=== PATIENT | female | born 1950 | race Caucasian/White ===

== ENCOUNTER 2017-01-21 00:12 | Emergency (ER) | payer OTHER ==
[~2017-01-21] VITALS: Ht 160 cm; Wt 73.5 kg
[~2017-01-21 00:12] MED LIST: ATOR80TA75 PO; HYDR-3671 PO; LEVO100T87 PO; LISI20TA11 PO; LORA10TA3 PO; METF500T4 PO; METO100T PO; WARF5TAB72 PO
[2017-01-21 00:22] VITALS: Ht 160 cm; Wt 73.5 kg
--- NOTE | 2017-01-21 00:51 | ERD ---
ER Documentation Chief Complaint Date/Time DATE: 01/21/17 TIME: 00:50 Chief Complaint new medication x 2 days , allergic reaction today, swelling, itching [id number]% HPI 66-year-old female presented emergency room for allergic reaction. Patient stated that this started after she took isosorbide that this newly prescribed by her primary care physician 2 days ago. She complains of generalized rash/ hives to neck, chest, back, bilateral upper and lower extremities that has progressed in the past 2 days. Denies headache, loss of consciousness, dizziness, blurry vision, changes in vision, photophobia, facial pain, ear pain, throat pain, throat tightness, throat itchiness, feeling of throat closure, difficulty swallowing, neck pain, shoulder pain, chest pain, cough, hemoptysis, abdominal pain, back pain, loss of appetite, nausea, vomiting, hematochezia, diarrhea, constipation, urinary symptoms, , the possibility of being , bladder and bowel incontinences, extremity weakness, extremity tenderness, numbness or tingling sensation, difficulty walking, recent travel, recent exposure to illness, recent antibiotic use in the last 3 months, fever, chills. Allergy: No known drug allergies. PMH: Diabetes, depression, hypertension, atrial fibrillation, hyperlipidemia, thyroid problem. Family medical history: Denies. Medications: Lisinopril, metoprolol, omeprazole, hydralazine, Lipitor, metformin , Synthroid, isosorbide. Surgery: Denies. Primary Social History: Retired. Denies smoking, use of alcohol, use of illegal drugs. ROS All systems reviewed and are negative except as per history of present illness. Medications Home Meds Reported Medications Loratadine* (Loratadine*) 10 Mg Tablet, 10 MG PO DAILY, #30 TAB 07/14/16 Hydralazine Hcl* (Hydralazine Hcl*) 25 Mg Tab, 50 MG PO BID, #120 TAB 07/14/16 Atorvastatin* (Atorvastatin*) 80 Mg Tablet, 80 MG PO QHS, #30 TAB 07/14/16 Lisinopril* (Lisinopril*) 20 Mg Tablet, 40 MG PO DAILY, #30 TAB 07/14/16 Levothyroxine Sodium* (Levothyroxine Sodium*) 100 Mcg Tablet, 100 MCG PO AC BREAKFAST, TAB 02/13/15 Warfarin Sodium* (Coumadin*) 5 Mg Tablet, 5 MG PO DAILY, TAB TAKE MON,MOI,FR-7.5MG AND T,TH,SAT,JUAERS-5MG 02/13/15 Metformin* (Glucophage*) 500 Mg Tab, 500 MG PO WITH MEALS, TAB 02/13/15 Metoprolol (Lopressor) 100 Mg Tablet, 200 MG PO BID 12/04/13 Allergies Allergies: Coded Allergies: No Known Allergy (Unverified , 07/14/16) PMhx/Soc History of Surgery: Yes (GALLBLADDER) Anesthesia Reaction: No Hx Neurological Disorder: No Hx Respiratory Disorders: No Hx Cardiac Disorders: Yes (A FIB, HTN, HIGH CHOLESTEROL) Hx Psychiatric Problems: No Hx Miscellaneous Medical Probl: Yes (DM, CVA ) Hx Alcohol Use: No Hx Substance Use: No Hx Tobacco Use: No Physical Exam Vitals Vital Signs Date Time Temp Pulse Resp B/P Pulse Ox O2 Delivery O2 Flow Rate FiO2 01/21/17 00:22 98.6 80 18 153/75 100 Physical Exam CONSTITUTIONAL: Well-appearing; well-nourished. HEAD: Normocephalic; atraumatic. EYES: Conjunctiva clear, sclera non-icteric, EOM intact. PERRLA. Ears: Hearing intact. EACs clear, TMs non-bulging, non-inflamed, translucent & mobile, ossicles normal appearance, No obstructions, no erythema, no discharges Nose: No obstructions. No polyps. No external lesions. Mucosa non-inflamed. No external lesions, septum and turbinates normal. No rhinorrhea. No discharges. Frontal sinus is non-tender to palpation. Maxillary sinus is non-tender to palpation. MOUTH: Moist mucous membranes, no lesion, no obstructions, no vesicles, no thrush, patent airway Throat: Uvula in midline. Right tonsil is +1 with no erythema, no exudate. Left tonsil is +1 with no erythema, no exudate. Tolerating secretions well. Good gag reflex. Patent airway. Neck: Supple, without lesions, bruits, or adenopathy. No mass. Thyroid non- enlarged and non-tender to palpation. CHEST: Symmetrical chest. Respirations even and not labored. No retractions noted. CARDIOVASCULAR: Normal S1, S2. RRR. No murmurs, gallops. RESPIRATORY: Normal chest excursion with respiration; breath sounds clear and equal bilaterally; no wheezes, rhonchi, or rales. Breathing even and unlabored. Speaking in clear, full, and complete sentences w/ ease. ABDOMEN: Normal bowel sounds normal. Soft, round, non-distended, non-guarding, no tenderness, no rebound, no organomegaly, no masses, no pulsating abdominal mass. No hernia. No peritoneal signs. : No CVA tenderness. BACK: Symmetrical shoulder. Spine is midline without deformity, tenderness. No evidence of trauma or deformity. PELVIS: Stable pelvis. No evidence of trauma or deformity. MUSCULOSKELETAL: Normal gait and station. No misalignment, asymmetry, crepitation, defects, tenderness, masses, effusions, decreased range of motion, instability, atrophy or abnormal strength or tone in the head, neck, spine, ribs , pelvis or extremities. No calf tenderness. NEUROVASCULAR: Distal pulses are present. Pedal pulse are present, equal, and normal. Capillary refills are < 2 seconds. NEUROLOGIC: Alert and oriented x4. Speaks full and clear sentences. Cranial Nerves II-XII normal. Sensation to pain, touch, and proprioception normal. Grossly unremarkable. No neurologic deficits. Romberg test is negative. PSYCHOLOGICAL: The patients mood and manner are appropriate. No hallucinations , delusions. Not SI. Not HI. Has the capacity to decide for self SKIN: Normal for age and ethnicity; warm; dry; good turgor; no apparent lesions or exudates. Intact. Noted rash/hives to neck, back, chest, bilateral upper and lower extremities. Results 24 hrs Current Medications Medications (Trade) Dose Ordered Sig/Roberto Route PRN Reason Start Time Stop Time Status Last Admin Dose Admin Methylprednisolone Sodium Succinate (Solu-Medrol) 125 mg ONCE ONCE IM 01/21/17 01:00 01/21/17 01:01 DC 01/21/17 01:01 Diphenhydramine HCl (Benadryl) 50 mg ONCE ONCE PO 01/21/17 01:00 01/21/17 01:01 DC 01/21/17 01:01 Procedures/MDM Examination: Please see physical examination. Disease process, medical treatment was explained to the patient and family member. They verbalized understanding and agreed with the medical treatment, and follow-up care. Treatment: Solu-Medrol IM. Pepcid p.o. Benadryl p.o. Re-evaluation: Patient denies headache, blurry vision, dizziness, neck pain, shoulder pain, chest pain, back pain, throat pain, feeling of throat closure, throat tightness, throat itchiness, chest tightness, abdominal pain. No nausea and vomiting. No episode of emesis here to emergency department. Skin appearance is improved. Skin rashes/hives has decreased a lot. Respirations even and unlabored. Lung sounds are clear to auscultations. No retractions. No accessory muscle use of breathing. Consultation: None. Differential diagnosis: Anaphylaxis versus allergic reaction versus hives versus rash versus scabies Medical decision makin-year-old female presented emergency room for allergic reaction. Patient stated that this started after she took isosorbide that this newly prescribed by her primary care physician 2 days ago. She complains of generalized rash/hives to neck, chest, back, bilateral upper and lower extremities that has progressed in the past 2 days. Patient's complaint, patient's history about her complaint, my physical findings, my reevaluation are consistent with my final diagnosis of allergic reaction. Medications prescribed are the following: Prednisone. Patient was instructed to stop her isosorbide and have her primary care physician to change it to another medication. Patient and family member are made aware of the side effects and adverse reactions of the medications prescribed. Instructed on when to seek emergent and medical attention in case allergic/anaphylactic reactions or severe side effects and or adverse reactions to medications. Patient and family member verbalized understanding. Patient instructed Instructed to follow-up with his PCP in 24-48 hours. Daughter stated that she will bring her to her primary care physician in the next 24-48 hours. Instructed to Call 911 for chest pain, shortness of breath. Advised to come back here in ED as soon as possible for severity of symptoms which includes but not limited to: any new symptoms; shortness of breath/difficulty of breathing; cardiovascular changes; severe gastrointestinal symptoms; signs and symptoms of bleeding and or infection; signs of compartment syndrome/neurovascular changes; neurological changes/deficits. Patient and family member verbalized understanding. Upon discharge, patient is alert and oriented x 4, speaks full and clear sentences, denies pain, has no neurological deficits, has no neurovascular deficits, difficulty of breathing. Breathing even and unlabored. Lung sounds are clear to auscultation. Not in distress. Appears comfortable. Ambulatory with steady gait. Appears satisfied with care provided here in ED. Departure Diagnosis: Primary Impression: Allergic reaction Condition: Stable Additional Instructions: Patient instructed Instructed to follow-up with his PCP in 24-48 hours. Daughter stated that she will bring her to her primary care physician in the next 24-48 hours. Instructed to Call 911 for chest pain, shortness of breath. Advised to come back here in ED as soon as possible for severity of symptoms which includes but not limited to: any new symptoms; shortness of breath/difficulty of breathing; cardiovascular changes; severe gastrointestinal symptoms; signs and symptoms of bleeding and or infection; signs of compartment syndrome/neurovascular changes; neurological changes/deficits. Patient and family member verbalized understanding. FATUMA FERRER Jan 21, 2017 00:51
[2017-01-21] MEDS ORDERED: METHYLPREDNISOLONE 125 MG INJ IM ONE (01:00)
[2017-01-21] MEDS ORDERED: DIPHENHYDRAMINE 50 MG CAP PO ONE (01:00)
[2017-01-21] MEDS ORDERED: PRED20TA PO (01:45)
[2017-01-21] MEDS ORDERED: BEN25 PO (01:45)
== END 2017-01-21 02:18 | disposition home or self-care (01) ==
LOC: FTE 00:12
DX: L29.9 Pruritus, unspecified (principal); T46.3X5A Adverse effect of coronary vasodilators, initial encounter; E11.9 Type 2 diabetes mellitus without complications; I10 Essential (primary) hypertension; Z79.84 Long term (current) use of oral hypoglycemic drugs; Z79.01 Long term (current) use of anticoagulants
CPT/HCPCS: J2930; Z7610; 96372

== ENCOUNTER 2017-04-16 18:35 | Emergency (ER) | payer SELFPAY ==
[~2017-04-16] VITALS: Ht 165.1 cm; Wt 63.5 kg
[~2017-04-16 18:35] MED LIST changes: +BEN25 PO; +PRED20TA PO
[2017-04-16 18:47] VITALS: Ht 165.1 cm; Wt 63.5 kg
--- NOTE | 2017-04-16 19:20 | ERD ---
ER Documentation Chief Complaint Date/Time DATE: 04/16/17 TIME: 19:18 Chief Complaint HTN and dizzy since this am, pt has not taken HTN medication since 6am HPI 66-year-old woman here for elevated blood pressure and dizziness. She states she has been using her medications without improvement in blood pressure. She denies fevers or chills, no chest pain or shortness of breath, no vomiting or diarrhea. ROS All systems reviewed and are negative except as per history of present illness. Medications Home Meds Active Scripts Meclizine Hcl* (Antivert*) 12.5 Mg Tab, 25 MG PO TID Y for DIZZINESS, #15 TAB Prov:SARAH LIMA MD 04/16/17 Diphenhydramine Hcl* (Benadryl*) 25 Mg Cap, 25 MG PO Q6 Y for ITCHING/RASH, #30 TAB Prov:FATUMA FERRER 01/21/17 Prednisone* (Prednisone*) 20 Mg Tab, 40 MG PO DAILY for 3 Days, TAB Prov:FATUMA FERRER 01/21/17 Reported Medications Loratadine* (Loratadine*) 10 Mg Tablet, 10 MG PO DAILY, #30 TAB 07/14/16 Hydralazine Hcl* (Hydralazine Hcl*) 25 Mg Tab, 50 MG PO BID, #120 TAB 07/14/16 Atorvastatin* (Atorvastatin*) 80 Mg Tablet, 80 MG PO QHS, #30 TAB 07/14/16 Lisinopril* (Lisinopril*) 20 Mg Tablet, 40 MG PO DAILY, #30 TAB 07/14/16 Levothyroxine Sodium* (Levothyroxine Sodium*) 100 Mcg Tablet, 100 MCG PO AC BREAKFAST, TAB 02/13/15 Warfarin Sodium* (Coumadin*) 5 Mg Tablet, 5 MG PO DAILY, TAB TAKE MON,MOI,FR-7.5MG AND T,TH,SAT,JUARES-5MG 02/13/15 Metformin* (Glucophage*) 500 Mg Tab, 500 MG PO WITH MEALS, TAB 02/13/15 Metoprolol (Lopressor) 100 Mg Tablet, 200 MG PO BID 12/04/13 Allergies Allergies: Coded Allergies: No Known Allergy (Unverified , 07/14/16) PMhx/Soc Atrial fibrillation, psychosis, diabetes mellitus, hypothyroidism, hypertension , dyslipidemia, CVA History of Surgery: Yes (GALLBLADDER) Anesthesia Reaction: No Hx Neurological Disorder: No Hx Respiratory Disorders: No Hx Cardiac Disorders: Yes (A FIB, HTN, HIGH CHOLESTEROL) Hx Psychiatric Problems: No Hx Miscellaneous Medical Probl: Yes (DM, CVA ) Hx Alcohol Use: No Hx Substance Use: No Hx Tobacco Use: No FmHx Family History: No diabetes Physical Exam Vitals Vital Signs Date Time Temp Pulse Resp B/P Pulse Ox O2 Delivery O2 Flow Rate FiO2 04/16/17 21:32 98.2 77 18 129/62 99 Room Air 04/16/17 18:47 98.2 72 18 206/95 96 Physical Exam GENERAL: Well-developed, well-nourished, well-hydrated, in no apparent distress , looks nontoxic in appearance HEENT: Moist mucous membranes, pink conjunctiva, no cervical spine tenderness or step-off deformities, no goiter, no jaundice or icterus, extraocular movements intact without pain. No submandibular induration, and no pharyngeal erythema NEURO: Alert and oriented 3, cranial nerves II through XII intact bilaterally, pupils equal round reactive to light, no focal deficits or facial asymmetry, sensation intact distally Strength 5/5 in upper and lower extremities bilaterally CARDIAC: Regular rate and rhythm, no murmurs rubs or gallops LUNGS: Clear bilaterally no wheezing crackles or stridor ABDOMEN: Soft nontender, no guarding, no rigidity, no rebound, no psoas sign no obturator sign. Normoactive bowel sounds SKIN: Warm and dry to touch, no abrasions, contusions, or hematomas, no lacerations, no ecchymosis, no target lesions, and without ulcers EXTREMITIES: No clubbing cyanosis or edema, calves are bilaterally symmetrical, no Homans sign, no popliteal cord sign. Distal pulses equal and bilateral PSYCH: Normal affect without agitation or irritability Result Diagram: 04/16/17193904/16/171939 Results 24 hrs Laboratory Tests Test 04/16/17 19:40 04/16/17 20:25 White Blood Count 5.510^3/ul Red Blood Count 3.8010^6/ul Hemoglobin 10.5g/dl Hematocrit 33.0% Mean Corpuscular Volume 86.8fl Mean Corpuscular Hemoglobin 27.6pg Mean Corpuscular Hemoglobin Concent 31.8g/dl Red Cell Distribution Width 17.3% Platelet Count 76090^3/UL Mean Platelet Volume 11.3fl Neutrophils % 62.3% Lymphocytes % 23.0% Monocytes % 10.5% Eosinophils % 2.7% Basophils % 1.3% Nucleated Red Blood Cells % 0.0/100WBC Neutrophils # 3.410^3/ul Lymphocytes # 1.310^3/ul Monocytes # 0.610^3/ul Eosinophils # 0.210^3/ul Basophils # 0.110^3/ul Nucleated Red Blood Cells # 0.010^3/ul Sodium Level 136mmol/L Potassium Level 3.5mmol/L Chloride Level 97mmol/L Carbon Dioxide Level 26mmol/L Anion Gap 17 Blood Urea Nitrogen 10mg/dl Creatinine 0.62mg/dl Glucose Level 98mg/dl Calcium Level 9.5mg/dl Total Bilirubin 0.9mg/dl Direct Bilirubin 0.00mg/dl Indirect Bilirubin 0.9mg/dl Aspartate Amino Transf (AST/SGOT) 42IU/L Alanine Aminotransferase (ALT/SGPT) 41IU/L Alkaline Phosphatase 116IU/L Troponin I < 0.012ng/ml Total Protein 7.9g/dl Albumin 4.9g/dl Globulin 3.00g/dl Albumin/Globulin Ratio 1.63 Lipase 116U/L Urine Color STRAW Urine Clarity CLEAR Urine pH 7.0 Urine Specific [place] 1.003 Urine Ketones NEGATIVEmg/dL Urine Nitrite NEGATIVEmg/dL Urine Bilirubin NEGATIVEmg/dL Urine Urobilinogen NEGATIVEmg/dL Urine Leukocyte Esterase TRACELeu/ul Urine Microscopic RBC 0/HPF Urine Microscopic WBC 1/HPF Urine Bacteria FEW/HPF Urine Hemoglobin NEGATIVEmg/dL Urine Glucose NEGATIVEmg/dL Urine Total Protein NEGATIVEmg/dl Current Medications Medications (Trade) Dose Ordered Sig/Roberto Route PRN Reason Start Time Stop Time Status Last Admin Dose Admin Clonidine (Catapres) 0.1 mg ONCE ONCE PO 04/16/17 19:30 04/16/17 19:31 DC 04/16/17 19:48 Ondansetron HCl 4 mg 4 mg ONCE STAT IV 04/16/17 19:23 04/16/17 19:27 DC 04/16/17 19:48 Sodium Chloride (NS) 1,000 ml @ 1,000 mls/hr Q1H ONCE IV 04/16/17 20:00 04/16/17 20:59 DC 04/16/17 19:47 Procedures/MDM IV line was established patient was placed on monitoring manager rhythm strip revealed a narrow complex rhythm at about 60 bpm. Patient was afebrile. For hypertension I administered clonidine 0.1 mg p.o. and 1 L normal saline intravenously for dizziness. Patient also received Zofran 4 mg IV. EKG performed, read by me revealed an atrial fibrillation at 63 bpm, normal axis , narrow QRS complex, no concerning ST elevations or depressions noted. CBC and electrolytes were normal, liver function tests are normal, troponin was negative. Urine analysis was negative for infection. Differential diagnoses considered, included but not limited to acute coronary syndrome, pulmonary embolism, aortic dissection, abdominal aortic aneurysm, sepsis, stroke, meningitis, encephalitis, pneumonia, appendicitis, cholecystitis , bowel obstruction, pyelonephritis, nephrolithiasis, cystitis, as well as metabolic, hematologic, and electrolyte abnormalities. As well as abscess, cellulitis, fractures, and dislocations. Patient feels much better at this time, and vital signs are normal, symptoms have improved. I did give strict instructions to return to the ED if symptoms continue or worsen, patient will otherwise follow-up with primary care physician. Patient understood instructions and agreed to plan. Disclaimer: Inadvertent spelling and grammatical errors are likely due to EHR/ dictation software use and do not reflect on the overall quality of patient care. Also, please note that the electronic time recorded on this note does not necessarily reflect the actual time of the patient encounter. Departure Diagnosis: Primary Impression: Hypertension Hypertension type: essential hypertension Qualified Code: I10 - Essential hypertension Additional Impression: Dizziness Condition: Good SARAH LIMA MD Apr 16, 2017 19:20
[2017-04-16] MEDS ORDERED: ONDANSETRON 4 MG INJ IV STA (19:23)
[2017-04-16 19:50] LABS: ADD SCAN DIFF NO
[2017-04-16] MEDS ORDERED: SOD CHLORIDE 0.9% 1,000 ML IV ONE (20:00)
[2017-04-16 20:01] LABS: BASOPHIL # 0.1 10^3/ul (0.0-0.1); BASOPHILS % 1.3 % (0.0-2.0); EOSINOPHILS # 0.2 10^3/ul (0.0-0.5); EOSINOPHILS % 2.7 % (0.0-7.0); HEMOGLOBIN 10.5 g/dl (12.0-16.0); LYMPHOCYTES # 1.3 10^3/ul (0.8-2.9); MEAN CORPUSCULAR HEMOGLOBIN 27.6 pg (29.0-33.0); MEAN CORPUSCULAR HGB CONC 31.8 g/dl (32.0-37.0); MEAN CORPUSCULAR VOLUME 86.8 fl (82.0-101.0); MEAN PLATELET VOLUME 11.3 fl (7.4-10.4); MONOCYTE # 0.6 10^3/ul (0.3-0.9); MONOCYTES % 10.5 % (0.0-11.0); NEUTROPHIL # 3.4 10^3/ul (1.6-7.5); NEUTROPHILS % 62.3 % (39.0-77.0); PLATELET COUNT 204 10^3/UL (140-415); RED CELL DISTRIBUTION WIDTH 17.3 % (11.5-14.5); WHITE BLOOD COUNT 5.5 10^3/ul (4.8-10.8)
[2017-04-16 20:18] LABS: ALANINE AMINOTRANSFERASE 41 IU/L (13-69); ALBUMIN 4.9 g/dl (3.3-4.9); ALBUMIN/GLOBULIN RATIO 1.63; ALKALINE PHOSPHATASE 116 IU/L (42-121); ANION GAP 17 (8-16); ASPARTATE AMINO TRANSFERASE 42 IU/L (15-46); BILIRUBIN,INDIRECT 0.9 mg/dl (0-1.1); BILIRUBIN,TOTAL 0.9 mg/dl (0.2-1.3); BLOOD UREA NITROGEN 10 mg/dl (7-20); CALCIUM 9.5 mg/dl (8.4-10.2); CARBON DIOXIDE 26 mmol/L (21-31); CHLORIDE 97 mmol/L (97-110); CREATININE 0.62 mg/dl (0.44-1.00); GLUCOSE 98 mg/dl (70-220); POTASSIUM 3.5 mmol/L (3.5-5.1); SODIUM 136 mmol/L (135-144); TOTAL PROTEIN 7.9 g/dl (6.1-8.1)
[2017-04-16 20:31] LABS: TROPONIN-I < 0.012 ng/ml (0.00-0.12)
[2017-04-16 20:46] LABS: ADD UMIC YES; UR ASCORBIC ACID NEGATIVE (NEGATIVE); UR BACTERIA FEW /HPF (NONE SEEN); UR BILIRUBIN (Dip) NEGATIVE (NEGATIVE); UR BLOOD (Dip) NEGATIVE (NEGATIVE); UR CLARITY CLEAR (CLEAR); UR COLOR STRAW (YELLOW); UR GLUCOSE (Dip) NEGATIVE (NEGATIVE); UR KETONES (Dip) NEGATIVE (NEGATIVE); UR LEUKOCYTE ESTERASE (Dip) TRACE Leu/ul (NEGATIVE); UR NITRITE (Dip) NEGATIVE (NEGATIVE); UR RBC 0 /HPF (0-5); UR SPECIFIC GRAVITY (Dip) 1.003 (1.003-1.030); UR TOTAL PROTEIN (Dip) NEGATIVE (NEGATIVE); UR UROBILINOGEN (Dip) NEGATIVE (NEGATIVE)
--- NOTE | 2017-04-16 21:11 | RADRPT ---
PROCEDURE: XR Chest. CLINICAL INDICATION: Abdominal pain. TECHNIQUE: PA and Lateral views of the chest were obtained. COMPARISON: None. FINDINGS: Cardiomegaly and atherosclerotic calcifications in the thoracic aorta. The lungs are clear. No signs of pleural fluid or pneumothorax are seen. The osseous structures and soft tissues are unremarkable . IMPRESSION: No evidence for active cardiopulmonary disease. RPTAT: [facility] Physician Shannon Date Time Electronically viewed and signed by Physician Shannon on 04/16/2017 21:10 RS/
[2017-04-16] MEDS ORDERED: MECL12.574 PO (21:16)
[2017-04-16 21:32] VITALS: BP 129/62; PULSE 77; RESP 18; TEMP 98.2
== END 2017-04-16 21:33 | disposition home or self-care (01) ==
LOC: E/R 18:35
DX: I10 Essential (primary) hypertension (principal); R42 Dizziness and giddiness; E11.9 Type 2 diabetes mellitus without complications; E03.9 Hypothyroidism, unspecified; Z79.01 Long term (current) use of anticoagulants; Z79.84 Long term (current) use of oral hypoglycemic drugs
CPT/HCPCS: 36415; 71010; 80053; 81001; 83690; 84484; 85025; 93005; 96374; 99285; J2405; J7030

== ENCOUNTER 2017-04-29 | Inpatient (IN) | payer MEDICAID ==
[~2017-04-29] VITALS: Ht 167.6 cm; Wt 67.4 kg
[2017-04-29] VITALS (16 sets, daily range): BP systolic 155–200; BP diastolic 69–95; PULSE 59–90; RESP 17–18; Ht 167.6 cm; Wt 67.4 kg
[~2017-04-29] MED LIST changes: +MECL12.574 PO
[2017-04-29] MEDS ORDERED: ASPIRIN 325 MG TAB PO STA (01:12)
[2017-04-29] MEDS ORDERED: SOD CHLORIDE 0.9% 1,000 ML IV STA (01:12)
--- NOTE | 2017-04-29 01:29 | ERA ---
ER Documentation Chief Complaint Date/Time DATE: 04/29/17 TIME: 01:27 Chief Complaint c/o generalized weakness and dizziness since 0. HPI A 66-year-old female with past medical history of AFib, diabetes, hypertension , hypothyroidism, peripheral artery disease, multiple strokes and TIAs, and high cholesterol, she states that around 6 PM tonight the patient started having numbness to her left side of her face and left arm. The daughter asked the patient to smile and she was unable to do so. The patient denies any weakness slurred speech headache syncope dizziness chest pain palpitations. Patient has a history of atrial fibrillation and is on Coumadin. She states that her symptoms are much improved. Patient's a very poor historian and is very soft-spoken and cannot give much of a history. ROS All systems reviewed and are negative except as per history of present illness. Medications Home Meds Active Scripts Meclizine Hcl* (Antivert*) 12.5 Mg Tab, 25 MG PO TID Y for DIZZINESS, #15 TAB Prov:SARAH LIMA MD 04/16/17 Diphenhydramine Hcl* (Benadryl*) 25 Mg Cap, 25 MG PO Q6 Y for ITCHING/RASH, #30 TAB Prov:FATUMA FERRER 01/21/17 Prednisone* (Prednisone*) 20 Mg Tab, 40 MG PO DAILY for 3 Days, TAB Prov:FATUMA FERRER 01/21/17 Reported Medications Loratadine* (Loratadine*) 10 Mg Tablet, 10 MG PO DAILY, #30 TAB 07/14/16 Hydralazine Hcl* (Hydralazine Hcl*) 25 Mg Tab, 50 MG PO BID, #120 TAB 07/14/16 Atorvastatin* (Atorvastatin*) 80 Mg Tablet, 80 MG PO QHS, #30 TAB 07/14/16 Lisinopril* (Lisinopril*) 20 Mg Tablet, 40 MG PO DAILY, #30 TAB 07/14/16 Levothyroxine Sodium* (Levothyroxine Sodium*) 100 Mcg Tablet, 100 MCG PO AC BREAKFAST, TAB 02/13/15 Warfarin Sodium* (Coumadin*) 5 Mg Tablet, 5 MG PO DAILY, TAB TAKE MON,MOI,FR-7.5MG AND T,TH,SAT,JUARES-5MG 02/13/15 Metformin* (Glucophage*) 500 Mg Tab, 500 MG PO WITH MEALS, TAB 02/13/15 Metoprolol (Lopressor) 100 Mg Tablet, 200 MG PO BID 12/04/13 Allergies Allergies: Coded Allergies: No Known Allergy (Unverified , 07/14/16) PMhx/Soc History of Surgery: Yes (GALLBLADDER, APPY ) Anesthesia Reaction: No Hx Neurological Disorder: No Hx Respiratory Disorders: No Hx Cardiac Disorders: Yes (A FIB, HTN, HIGH CHOLESTEROL) Hx Psychiatric Problems: No Hx Miscellaneous Medical Probl: Yes (DM, CVA ) Hx Alcohol Use: No Hx Substance Use: No Hx Tobacco Use: No FmHx Family History: No coronary disease Physical Exam Vitals Vital Signs Date Time Temp Pulse Resp B/P Pulse Ox O2 Delivery O2 Flow Rate FiO2 04/29/17 01:55 62 16 183/105 100 Room Air 04/29/17 00:05 97.3 64 20 201/110 62 Physical Exam Const: [] Head: Atraumatic Eyes: Normal Conjunctiva ENT: Normal External Ears, Nose and Mouth. Neck: Full range of motion..~ No meningismus. Resp: Clear to auscultation bilaterally Cardio: Regular rate and rhythm, no murmurs Abd: Soft, non tender, non distended. Normal bowel sounds Skin: No petechiae or rashes Back: No midline or flank tenderness Ext: No cyanosis, or edema Neur: Awake and alert Psych: Normal Mood and Affect Result Diagram: 04/29/1711604/29/17116 Results 24 hrs Laboratory Tests Test 04/29/17 01:17 04/29/17 01:32 White Blood Count 5.210^3/ul Red Blood Count 3.8910^6/ul Hemoglobin 10.9g/dl Hematocrit 33.7% Mean Corpuscular Volume 86.6fl Mean Corpuscular Hemoglobin 28.0pg Mean Corpuscular Hemoglobin Concent 32.3g/dl Red Cell Distribution Width 16.8% Platelet Count 29102^3/UL Mean Platelet Volume 10.5fl Neutrophils % 63.4% Lymphocytes % 22.8% Monocytes % 10.3% Eosinophils % 2.3% Basophils % 1.0% Nucleated Red Blood Cells % 0.0/100WBC Neutrophils # 3.310^3/ul Lymphocytes # 1.210^3/ul Monocytes # 0.510^3/ul Eosinophils # 0.110^3/ul Basophils # 0.110^3/ul Nucleated Red Blood Cells # 0.010^3/ul Prothrombin Time 21.2Sec Prothrombin Time Ratio 1.7 INR International Normalized Ratio 1.82 Activated Partial Thromboplast Time 35.1Sec Urine Color COLORLESS Urine Clarity CLEAR Urine pH 7.0 Urine Specific [place] 1.003 Urine Ketones NEGATIVEmg/dL Urine Nitrite NEGATIVEmg/dL Urine Bilirubin NEGATIVEmg/dL Urine Urobilinogen NEGATIVEmg/dL Urine Leukocyte Esterase 2+Zander/ul Urine Microscopic RBC 0/HPF Urine Microscopic WBC 8/HPF Urine Hemoglobin NEGATIVEmg/dL Urine Glucose NEGATIVEmg/dL Urine Total Protein NEGATIVEmg/dl Sodium Level 135mmol/L Potassium Level 3.7mmol/L Chloride Level 95mmol/L Carbon Dioxide Level 27mmol/L Anion Gap 17 Blood Urea Nitrogen 13mg/dl Creatinine 0.67mg/dl Glucose Level 109mg/dl Calcium Level 9.6mg/dl Total Bilirubin 1.3mg/dl Direct Bilirubin 0.00mg/dl Indirect Bilirubin 1.3mg/dl Aspartate Amino Transf (AST/SGOT) 44IU/L Alanine Aminotransferase (ALT/SGPT) 37IU/L Alkaline Phosphatase 94IU/L Troponin I < 0.012ng/ml Total Protein 8.1g/dl Albumin 4.7g/dl Globulin 3.40g/dl Albumin/Globulin Ratio 1.38 Bedside Glucose 111mg/dL Current Medications Medications (Trade) Dose Ordered Sig/Roberto Route PRN Reason Start Time Stop Time Status Last Admin Dose Admin Sodium Chloride (NS) 1,000 ml @ 1,000 mls/hr Q1H STAT IV 04/29/17 01:12 04/29/17 02:11 DC 04/29/17 01:34 Aspirin 325 mg 325 mg ONCE STAT PO 04/29/17 01:12 04/29/17 01:13 DC 04/29/17 01:34 Sodium Chloride (NS) 1,000 ml @ 80 mls/hr [id number] IV 04/29/17 02:52 04/29/17 15:21 Ondansetron HCl (Zofran Inj) 4 mg ER BRIDGE PRN IV NAUSEA AND/OR VOMITING 04/29/17 03:00 04/30/17 02:59 Acetaminophen (Tylenol Tab) 650 mg ER BRIDGE PRN PO MILD PAIN/FEVER 04/29/17 03:00 04/30/17 02:59 Procedures/MDM PROCEDURE: CT head, without contrast. CLINICAL INDICATION: Possible stroke. Left-sided weakness. TECHNIQUE: Noncontrast CT examination of the head, with axial, sagittal and coronal reformatted images. Automated dose exposure control was employed. CTDI: 44.26 and DLP: 720.23 COMPARISON: CT head dated 07/14/2016 FINDINGS: Remote large left MCA territory and posterior left watershed territory infarcts. There are changes of encephalomalacia. Small posterior right watershed infarct. These findings are similar in appearance to examination dated 07/14/2016. If there is concern for an acute on chronic infarct consider MRI correlation. No acute hemorrhage. Subarachnoid spaces are substantially preserved and symmetric. Ventricles are unremarkable. No mass effect. Rockwell-white matter distinction is preserved without evident decreased attenuation to suggest acute or recent infarct. Sinuses and osseous structures are unremarkable. IMPRESSION: 1. Remote large left MCA territory and posterior left watershed territory infarcts. 2. Small posterior right watershed infarct. 3. These findings are without significant change since 07/14/2016. 4. Otherwise, no acute process in the head. RPTAT: [facility] Physician Shannon Date Time Electronically viewed and signed by Physician Shannon on 04/29/2017 02:17 RS/ CC: HAYDEE PARKER DO PROCEDURE: XR Chest. CLINICAL INDICATION: Possible stroke. TECHNIQUE: Single frontal view of the chest. COMPARISON: 07/14/2016. FINDINGS: Cardiomegaly. Atherosclerotic calcifications in the tortuous thoracic aorta. The lungs are clear. No signs of pleural fluid or pneumothorax are seen. The osseous structures and soft tissues are unremarkable. IMPRESSION: No evidence for active cardiopulmonary disease. RPTAT: [facility] Doreen Apple Physician Date Time Electronically viewed and signed by Doreen Apple Physician on 04/29/2017 02:08 RS/ CC: HAYDEE PARKER DO EKG: Rate/Rhythm: Rate controlled atrial fibrillation, irregular rhythm QRS, ST, QT: NORMAL, QRS, QT] Impression: Rate controlled atrial fibrillation Patient admitted for observation and for MRI to rule out further worsening or complications of a CVA, hopefully this is going to be a TIA and symptoms are resolved within 24 hours Departure Diagnosis: Primary Impression: CVA (cerebral vascular accident) Qualified Code: I63.9 - Cerebrovascular accident (CVA), unspecified mechanism Condition: Stable HAYDEE PARKER DO Apr 29, 2017 01:28
[2017-04-29 01:41] LABS: BASOPHIL # 0.1 10^3/ul (0.0-0.1); EOSINOPHILS # 0.1 10^3/ul (0.0-0.5); EOSINOPHILS % 2.3 % (0.0-7.0); HEMATOCRIT 33.7 % (37.0-47.0); HEMOGLOBIN 10.9 g/dl (12.0-16.0); LYMPHOCYTES # 1.2 10^3/ul (0.8-2.9); LYMPHOCYTES % 22.8 % (15.0-51.0); MEAN CORPUSCULAR HGB CONC 32.3 g/dl (32.0-37.0); MEAN CORPUSCULAR VOLUME 86.6 fl (82.0-101.0); MEAN PLATELET VOLUME 10.5 fl (7.4-10.4); MONOCYTE # 0.5 10^3/ul (0.3-0.9); MONOCYTES % 10.3 % (0.0-11.0); NEUTROPHIL # 3.3 10^3/ul (1.6-7.5); NEUTROPHILS % 63.4 % (39.0-77.0); PLATELET COUNT 229 10^3/UL (140-415); RED BLOOD COUNT 3.89 10^6/ul (4.20-5.40); RED CELL DISTRIBUTION WIDTH 16.8 % (11.5-14.5); WHITE BLOOD COUNT 5.2 10^3/ul (4.8-10.8)
[2017-04-29 01:46] LABS: ADD UMIC YES; UR ASCORBIC ACID NEGATIVE (NEGATIVE); UR BILIRUBIN (Dip) NEGATIVE (NEGATIVE); UR BLOOD (Dip) NEGATIVE (NEGATIVE); UR CLARITY CLEAR (CLEAR); UR COLOR COLORLESS (YELLOW); UR GLUCOSE (Dip) NEGATIVE (NEGATIVE); UR KETONES (Dip) NEGATIVE (NEGATIVE); UR LEUKOCYTE ESTERASE (Dip) 2+ Leu/ul (NEGATIVE); UR NITRITE (Dip) NEGATIVE (NEGATIVE); UR RBC 0 /HPF (0-5); UR SPECIFIC GRAVITY (Dip) 1.003 (1.003-1.030); UR TOTAL PROTEIN (Dip) NEGATIVE (NEGATIVE); UR UROBILINOGEN (Dip) NEGATIVE (NEGATIVE)
[2017-04-29 02:02] LABS: INR 1.82; PROTIME 21.2 Sec (12.2-14.2); PT RATIO 1.7
[2017-04-29 02:03] LABS: PARTIAL THROMBOPLASTIN TIME 35.1 Sec (25.0-35.0)
[2017-04-29 02:04] LABS: ALANINE AMINOTRANSFERASE 37 IU/L (13-69); ALBUMIN 4.7 g/dl (3.3-4.9); ALBUMIN/GLOBULIN RATIO 1.38; ALKALINE PHOSPHATASE 94 IU/L (42-121); ANION GAP 17 (8-16); ASPARTATE AMINO TRANSFERASE 44 IU/L (15-46); BILIRUBIN,INDIRECT 1.3 mg/dl (0-1.1); BILIRUBIN,TOTAL 1.3 mg/dl (0.2-1.3); BLOOD UREA NITROGEN 13 mg/dl (7-20); CALCIUM 9.6 mg/dl (8.4-10.2); CARBON DIOXIDE 27 mmol/L (21-31); CHLORIDE 95 mmol/L (97-110); CREATININE 0.67 mg/dl (0.44-1.00); GLUCOSE 109 mg/dl (70-220); POTASSIUM 3.7 mmol/L (3.5-5.1); SODIUM 135 mmol/L (135-144); TOTAL PROTEIN 8.1 g/dl (6.1-8.1)
--- NOTE | 2017-04-29 02:09 | RADRPT ---
PROCEDURE: XR Chest. CLINICAL INDICATION: Possible stroke. TECHNIQUE: Single frontal view of the chest. COMPARISON: 07/14/2016. FINDINGS: Cardiomegaly. Atherosclerotic calcifications in the tortuous thoracic aorta. The lungs are clear. N o signs of pleural fluid or pneumothorax are seen. The osseous structures and soft tissues are unrem arkable. IMPRESSION: No evidence for active cardiopulmonary disease. RPTAT: [facility] Physician Shannon Date Time Electronically viewed and signed by Doreen Apple Physician on 04/29/2017 02:08 RS/
--- NOTE | 2017-04-29 02:18 | RADRPT ---
PROCEDURE: CT head, without contrast. CLINICAL INDICATION: Possible stroke. Left-sided weakness. TECHNIQUE: Noncontrast CT examination of the head, with axial, sagittal and coronal reformatted im ages. Automated dose exposure control was employed. CTDI: 44.26 and DLP: 720.23 COMPARISON: CT head dated 07/14/2016 FINDINGS: Remote large left MCA territory and posterior left watershed territory infarcts. There are changes of encephalomalacia. Small posterior right watershed infarct. These findings are similar in appear ance to examination dated 07/14/2016. If there is concern for an acute on chronic infarct consider M RI correlation. No acute hemorrhage. Subarachnoid spaces are substantially preserved and symmetric. Ventricles ar e unremarkable. No mass effect. Rockwell-white matter distinction is preserved without evident decreased attenuation t o suggest acute or recent infarct. Sinuses and osseous structures are unremarkable. IMPRESSION: 1. Remote large left MCA territory and posterior left watershed territory infarcts. 2. Small posterior right watershed infarct. 3. These findings are without significant change since 07/14/2016. 4. Otherwise, no acute process in the head. RPTAT: [facility] Physician Shannon Date Time Electronically viewed and signed by Physician Shannon on 04/29/2017 02:17 RS/
[2017-04-29 02:23] LABS: TROPONIN-I < 0.012 ng/ml (0.00-0.12)
[2017-04-29] MEDS ORDERED: SOD CHLORIDE 0.9% 1,000 ML IV SCH (02:52)
[2017-04-29] MEDS ORDERED: ACETAMINOPHEN 325 MG TAB PO PRN ×2 (03:00→04:00)
[2017-04-29] MEDS ORDERED: ONDANSETRON 4 MG INJ IV PRN ×2 (03:00→04:00)
[2017-04-29] MEDS ORDERED: morphine 2 MG INJ IV PRN (04:00)
[2017-04-29] MEDS ORDERED: DIPHENHYDRAMINE 25 MG CAP PO PRN (04:00)
[2017-04-29] MEDS ORDERED: ALBUTEROL/IPRATROPIUM (NEB) 3 ML AMP HHN PRN (04:00)
[2017-04-29] MEDS ORDERED: NACL 0.9% 3 ML SYG IV SCH (04:00)
[2017-04-29] MEDS ORDERED: LORAZEPAM 0.5 MG TAB PO PRN (04:00)
[2017-04-29] MEDS ORDERED: MECLIZINE 12.5 MG TAB PO PRN (04:00)
[2017-04-29] MEDS ORDERED: GLUCOSE GEL 15 GRAM TUBE BUCCAL PRN (05:00)
[2017-04-29] MEDS ORDERED: GLUCOSE GEL 15 GRAM TUBE PO PRN ×2 (05:00)
[2017-04-29] MEDS ORDERED: DEXTROSE 50% 50 ML SYRINGE IV PRN ×2 (05:00)
[2017-04-29] MEDS ORDERED: GLUCAGON 1 MG INJ IM PRN (05:00)
[2017-04-29] MEDS: hydrALAzine 20 MG INJ IV PRN ×2 (06:29→20:13)
[2017-04-29] MEDS: INSULIN ASPART [NOVOLOG] 3 ML PEN SC SCH ×4 (07:52→21:00)
[2017-04-29] MEDS: INSULIN GLARGINE [LANtus] 3 ML PEN SC SCH (08:19)
[2017-04-29] MEDS: LEVOTHYROXINE 100 MCG TAB PO SCH (08:20)
[2017-04-29] MEDS: LORATADINE 10 MG TAB PO SCH (08:21)
[2017-04-29] MEDS: predniSONE 20 MG TAB PO SCH (08:21)
[2017-04-29] MEDS: LISINOPRIL 20 MG TAB PO SCH (08:22)
[2017-04-29] MEDS: METOPROLOL 100 MG TAB PO SCH ×2 (08:24→21:36)
--- NOTE | 2017-04-29 09:12 | HP ---
Date/Time of Note Date/Time of Note DATE: 04/29/17 TIME: 08:52 Assessment/Plan VTE Prophylaxis VTE Prophylaxis Intervention: other (COUMADIN) Lines/Catheters IV [facility] [place] Assessment/Plan Assessment/Plan 1. Acute on chronic CVA -Patient had a stroke over 2 years ago was residual deficits including expressive aphasia. Head CT only shows old infarcts which is unchanged from previous CAT scan. Plan is to obtain MRI of the brain. Will consult neurology. Speech/swallow evaluation as well as physical therapy evaluation. Continue aspirin, statin. Permissive hypertension was allowed but will start to treat in the morning. 2. Hypertensive urgency -Adjust BP meds for better control 3. History of A-fib -Continue home medication including Coumadin 4. Dyslipidemia: Continue statin 5. Diabetes: Insulin while in-house 6. Hypothyroidism: Continue Synthroid HPI/ROS Admit Date/Time Admit Date/Time Apr 29, 2017 at 02:53 Hx of Present Illness This is a 66-year-old female with a history of atrial fibrillation, diabetes, hypothyroidism, hypertension, dyslipidemia and CVA with residual deficits including expressive aphasia. Patient was brought to the ER because of right- sided weakness. Patient speech is difficult to understand because of the slurring as a result of her previous stroke and she is also very slow when answering questions if she does at all. She did however pointed to the right side of her face indicating that she had a facial droop. Her right cheek is erythematous. When she presented to the ER, CT of the head was done and it showed large left MCA territory infarct, posterior left watershed infarcts and a small right posterior watershed infarct as well. This findings are unchanged from the CAT scan from July of last year. On my physical examination, I noticed that she does have good bilateral upper and lower extremity strength. PMH/Family/Social Past Surgical History Past Surgical Hx: cholecystectomy Social History Smoking Status: Never smoker Exam/Review of Systems Vital Signs Vitals Vital Signs Date Time Temp Pulse Resp B/P Pulse Ox O2 Delivery O2 Flow Rate FiO2 04/29/17 08:28 77 04/29/17 08:22 97.6 18 172/89 95 04/29/17 02:55 Room Air Exam Constitutional: other (Appears somehow lethargic, slurred speech) Head: atraumatic, normocephalic Eyes: PERRL ENMT: other (Right cheek is erythematous) Respiratory: clear to auscultation Cardiovascular: nl pulses, regular rate and rhythm Gastrointestinal: non-tender, soft Extremities: normal pulses Neurological: lethargic, other (Slurred speech) Labs Result Diagram: 04/29/177 04/29/17 0117 Medications Medications Current Medications Sodium Chloride (NS) 1,000 ml @ 80 mls/hr [id number] IV ; Start 04/29/17 at 02:52 ; Stop 04/29/17 at 15:21 Lorazepam (Ativan) 0.5 mg Q8H PRN PO ANXIETY; Start 04/29/17 at 04:00 Ondansetron HCl (Zofran Inj) 4 mg Q6H PRN IV NAUSEA AND/OR VOMITING; Start at 04:00 Acetaminophen (Tylenol Tab) 650 mg Q6H PRN PO PAIN LEVEL 1-3 OR FEVER; Start at 04:00 Morphine Sulfate (morphine) 2 mg Q4H PRN IV PAIN LEVEL 7-10; Start 04/29/17 at 04:00 Atorvastatin Calcium (Lipitor) 80 mg QHS PO ; Start 04/29/17 at 21:00 Diphenhydramine HCl (Benadryl) 25 mg Q6 PRN PO ITCHING/RASH; Start 04/29/17 at 04:00 Hydralazine HCl (Apresoline) 50 mg BID PO Last administered on 04/29/17 08:23 ; Admin Dose 50 MG; Start 04/29/17 at 09:00 Lisinopril (Zestril) 40 mg DAILY PO Last administered on 04/29/17 08:22; Admin Dose 40 MG; Start 04/29/17 at 09:00 Loratadine (Claritin) 10 mg DAILY PO Last administered on 04/29/17 08:21; Admin Dose 10 MG; Start 04/29/17 at 09:00 Meclizine HCl (Antivert) 25 mg TID PRN PO DIZZINESS; Start 04/29/17 at 04:00 Metoprolol Tartrate (Lopressor) 200 mg BID PO Last administered on 04/29/17 08 :24; Admin Dose 200 MG; Start 04/29/17 at 09:00 Prednisone (Prednisone) 40 mg DAILY PO Last administered on 04/29/17 08:21; Admin Dose 40 MG; Start 04/29/17 at 09:00 Warfarin Sodium (Coumadin) 5 mg DAILY@17 PO ; Start 04/29/17 at 17:00 Diagnostic Test (Pha) (Accu-Chek) 1 ea 02 XX ; Start 04/30/17 at 02:00 Insulin Glargine (Lantus) 11 unit DAILY@08 SC Last administered on 04/29/17 08 :19; Admin Dose 11 UNIT; Start 04/29/17 at 08:00 Miscellaneous Information 1 ea NOTE XX ; Start 04/29/17 at 05:00 Glucose (Glutose) 15 gm Q15M PRN PO DECREASED GLUCOSE; Start 04/29/17 at 05:00 Glucose (Glutose) 22.5 gm Q15M PRN PO DECREASED GLUCOSE; Start 04/29/17 at 05: 00 Dextrose (D50w Syringe) 25 ml Q15M PRN IV DECREASED GLUCOSE; Start 04/29/17 at 05:00 Dextrose (D50w Syringe) 50 ml Q15M PRN IV DECREASED GLUCOSE; Start 04/29/17 at 05:00 Glucagon (Glucagen) 1 mg Q15M PRN IM DECREASED GLUCOSE; Start 04/29/17 at 05:00 Glucose (Glutose) 15 gm Q15M PRN BUCCAL DECREASED GLUCOSE; Start 04/29/17 at 05 :00 Hydralazine HCl (Apresoline) 10 mg Q4H PRN IV ELEVATED BLOOD PRESSURE Last administered on 04/29/17 06:29; Admin Dose 10 MG; Start 04/29/17 at 06:30 VELMA RAMOS MD Apr 29, 2017 09:04
[2017-04-29] MEDS: WARFARIN 5 MG TAB PO SCH (17:22)
--- NOTE | 2017-04-29 17:53 | CONS ---
Date/Time of Note Date/Time of Note DATE: 04/29/17 TIME: 17:48 Assessment/Plan Assessment/Plan Chief Complaint/Hosp Course 66 yo female with hx of afib, HTN, HLD, DM w prior Left MCA stroke on Coumadin p /w worsening of symptoms. Suggest MRI Brain, Carotid Duplex, ECHO, check FLP, HBA1C for secondary stroke prevention. c/w Coumadin goal INR 2-3 adjust accordingly, infectious work up, PT/OT/Speech will follow up again for further recommendations Problems: Consultation Date/Type/Reason Admit Date/Time Apr 29, 2017 at 02:53 Date of Consultation: Apr 29, 2017 Type of Consultation: Neurology Reason for Consultation eval for CVA Referring Provider: JULIANNE PHILLIP Hx of Present Illness 66 yo female with hx of known afib, DM, HTN, HLD, previous Left MCA CVA w residual expressive aphasia. She was brought to the ER c/o speech issues, nausea /vomiting and difficulty thinking. CTH on admission to ER showed old left MCA, posterior left watershed infarcts and small right posterior watershed as well, MRI pending for further eval. She is currently on Coumadin at home, reports compliance. INR: 1.82 on admission. Further CVA work up planned. nausea vomiting slowed thinking Past Surgical History Past Surgical Hx: cholecystectomy Social History Smoking Status: Never smoker Exam/Review of Systems Vital Signs Vitals Vital Signs Date Time Temp Pulse Resp B/P Pulse Ox O2 Delivery O2 Flow Rate FiO2 04/29/17 17:48 86 04/29/17 15:07 98.8 17 188/91 97 04/29/17 02:55 Room Air Exam awake and alert oriented x3 some mild expressive aphasia CN: SHLOMO, VFF blinks to threat EOMI no nystagmus v1-3 intact no sig. facial asymmetry palate upgoing uvula midline scm/trap intact tongue midline Motor: no drift in arms or legs Coord no ataxia Results Result Diagram: 04/29/1711604/29/17116 Results 24 hrs Laboratory Tests Test 04/29/17 01:17 04/29/17 01:32 04/29/17 07:43 04/29/17 11:32 White Blood Count 5.2 Red Blood Count 3.89 L Hemoglobin 10.9 L Hematocrit 33.7 L Mean Corpuscular Volume 86.6 Mean Corpuscular Hemoglobin 28.0 L Mean Corpuscular Hemoglobin Concent 32.3 Red Cell Distribution Width 16.8 H Platelet Count 229 Mean Platelet Volume 10.5 H Neutrophils % 63.4 Lymphocytes % 22.8 Monocytes % 10.3 Eosinophils % 2.3 Basophils % 1.0 Nucleated Red Blood Cells % 0.0 Neutrophils # 3.3 Lymphocytes # 1.2 Monocytes # 0.5 Eosinophils # 0.1 Basophils # 0.1 Nucleated Red Blood Cells # 0.0 Prothrombin Time 21.2 #H Prothrombin Time Ratio 1.7 INR International Normalized Ratio 1.82 Activated Partial Thromboplast Time 35.1 H Urine Color COLORLESS Urine Clarity CLEAR Urine pH 7.0 Urine Specific [place] 1.003 Urine Ketones NEGATIVE Urine Nitrite NEGATIVE Urine Bilirubin NEGATIVE Urine Urobilinogen NEGATIVE Urine Leukocyte Esterase 2+ H Urine Microscopic RBC 0 Urine Microscopic WBC 8 H Urine Hemoglobin NEGATIVE Urine Glucose NEGATIVE Urine Total Protein NEGATIVE Sodium Level 135 Potassium Level 3.7 Chloride Level 95 L Carbon Dioxide Level 27 Anion Gap 17 H Blood Urea Nitrogen 13 Creatinine 0.67 Glucose Level 109 Calcium Level 9.6 Total Bilirubin 1.3 Direct Bilirubin 0.00 Indirect Bilirubin 1.3 H Aspartate Amino Transf (AST/SGOT) 44 Alanine Aminotransferase (ALT/SGPT) 37 Alkaline Phosphatase 94 Troponin I < 0.012 Total Protein 8.1 Albumin 4.7 Globulin 3.40 H Albumin/Globulin Ratio 1.38 Bedside Glucose 111 92 151 Test 04/29/17 17:19 Bedside Glucose 154 Medications Medications Current Medications Lorazepam (Ativan) 0.5 mg Q8H PRN PO ANXIETY; Start 04/29/17 at 04:00 Ondansetron HCl (Zofran Inj) 4 mg Q6H PRN IV NAUSEA AND/OR VOMITING; Start at 04:00 Acetaminophen (Tylenol Tab) 650 mg Q6H PRN PO PAIN LEVEL 1-3 OR FEVER; Start at 04:00 Morphine Sulfate (morphine) 2 mg Q4H PRN IV PAIN LEVEL 7-10; Start 04/29/17 at 04:00 Atorvastatin Calcium (Lipitor) 80 mg QHS PO ; Start 04/29/17 at 21:00 Diphenhydramine HCl (Benadryl) 25 mg Q6 PRN PO ITCHING/RASH; Start 04/29/17 at 04:00 Hydralazine HCl (Apresoline) 50 mg BID PO Last administered on 04/29/17 08:23 ; Admin Dose 50 MG; Start 04/29/17 at 09:00 Lisinopril (Zestril) 40 mg DAILY PO Last administered on 04/29/17 08:22; Admin Dose 40 MG; Start 04/29/17 at 09:00 Loratadine (Claritin) 10 mg DAILY PO Last administered on 04/29/17 08:21; Admin Dose 10 MG; Start 04/29/17 at 09:00 Meclizine HCl (Antivert) 25 mg TID PRN PO DIZZINESS; Start 04/29/17 at 04:00 Metoprolol Tartrate (Lopressor) 200 mg BID PO Last administered on 04/29/17 08 :24; Admin Dose 200 MG; Start 04/29/17 at 09:00 Prednisone (Prednisone) 40 mg DAILY PO Last administered on 04/29/17 08:21; Admin Dose 40 MG; Start 04/29/17 at 09:00 Warfarin Sodium (Coumadin) 5 mg DAILY@17 PO Last administered on 04/29/17 17: 22; Admin Dose 5 MG; Start 04/29/17 at 17:00 Diagnostic Test (Pha) (Accu-Chek) 1 ea 02 XX ; Start 04/30/17 at 02:00 Insulin Glargine (Lantus) 11 unit DAILY@08 SC Last administered on 04/29/17 08 :19; Admin Dose 11 UNIT; Start 04/29/17 at 08:00 Miscellaneous Information 1 ea NOTE XX ; Start 04/29/17 at 05:00 Glucose (Glutose) 15 gm Q15M PRN PO DECREASED GLUCOSE; Start 04/29/17 at 05:00 Glucose (Glutose) 22.5 gm Q15M PRN PO DECREASED GLUCOSE; Start 04/29/17 at 05: 00 Dextrose (D50w Syringe) 25 ml Q15M PRN IV DECREASED GLUCOSE; Start 04/29/17 at 05:00 Dextrose (D50w Syringe) 50 ml Q15M PRN IV DECREASED GLUCOSE; Start 04/29/17 at 05:00 Glucagon (Glucagen) 1 mg Q15M PRN IM DECREASED GLUCOSE; Start 04/29/17 at 05:00 Glucose (Glutose) 15 gm Q15M PRN BUCCAL DECREASED GLUCOSE; Start 04/29/17 at 05 :00 Hydralazine HCl (Apresoline) 10 mg Q4H PRN IV ELEVATED BLOOD PRESSURE Last administered on 04/29/17t 06:29; Admin Dose 10 MG; Start 04/29/17 at 06:30 Aspirin (Halfprin) 81 mg DAILY PO ; Start 04/30/17 at 09:00 REYNOLD LIANG MD Apr 29, 2017 17:53
--- NOTE | 2017-04-29 18:31 | RADRPT ---
PROCEDURE: MRI Brain without contrast. CLINICAL INDICATION: Stroke. TECHNIQUE: An MRI of the brain was performed utilizing the following sequences: Sagittal and axial T1 weighted, axial T2 weighted, axial diffusion weighted with ADC mapping, coronal GRE, and axial F LAIR. COMPARISON: Brain CT 04/29/2017. FINDINGS: There are old infarcts involving parietal lobe, posterior frontal and temporal lobes and occipital p arietal region mainly in the posterior left MCA distribution and posterior watershed MCA / [employer] distr ibution. There is ex vacuo dilatation of the left lateral ventricle. Old right parietal cortical inf arct is noted. No diffusion weighted abnormalities are seen to suggest the presence of acute ischemia or recent inf arct. No hypointense signal abnormalities are seen on the GRE images to suggest the presence of blo od degradation products. There is no evidence of intracranial hemorrhage, mass effect, or midline s hift. No extra-axial fluid collections are seen. The ventricles and sulci are mildly enlarged indica tive of volume loss. There are additional mild scattered foci of T2 FLAIR hyperintensity in the periventricular, deep, an d subcortical white matter, which are nonspecific in etiology but likely reflect chronic small vesse l ischemic changes. No abnormal intracranial vascular flow void is noted. The visualized paranasal sinuses demonstrate m ild scattered mucosal thickening mainly in ethmoid air cells and maxillary sinuses. IMPRESSION: 1. No acute intracranial hemorrhage, infarction or mass. 2. Mild chronic small vessel ischemic changes. 3. Old infarcts involving posterior left MCA distribution and posterior watershed MCA / [employer] distrib ution. 4. Old right parietal cortical infarct is noted. 5. Mild generalized cerebral volume loss. RPTAT: HFN .Roxy Matamoros MD, MD Date Time Electronically viewed and signed by .Roxy Matamoros MD, MD on 04/29/2017 18:31 .N/
[2017-04-29] MEDS: ATORVASTATIN 80 MG TAB PO SCH (21:35)
[2017-04-30] VITALS (12 sets, daily range): BP systolic 141–185; BP diastolic 67–88; PULSE 55–75; RESP 16–18
[2017-04-30] MEDS ORDERED: ACCU-CHEK XX SCH (02:00)
[2017-04-30 07:20] LABS: BASOPHIL # 0.1 10^3/ul (0.0-0.1); BASOPHILS % 0.7 % (0.0-2.0); EOSINOPHILS # 0.1 10^3/ul (0.0-0.5); EOSINOPHILS % 1.3 % (0.0-7.0); HEMATOCRIT 30.7 % (37.0-47.0); HEMOGLOBIN 9.7 g/dl (12.0-16.0); LYMPHOCYTES # 1.2 10^3/ul (0.8-2.9); LYMPHOCYTES % 14.2 % (15.0-51.0); MEAN CORPUSCULAR HEMOGLOBIN 27.2 pg (29.0-33.0); MEAN CORPUSCULAR HGB CONC 31.6 g/dl (32.0-37.0); MEAN CORPUSCULAR VOLUME 86.2 fl (82.0-101.0); MEAN PLATELET VOLUME 11.1 fl (7.4-10.4); MONOCYTE # 0.7 10^3/ul (0.3-0.9); MONOCYTES % 8.5 % (0.0-11.0); NEUTROPHIL # 6.2 10^3/ul (1.6-7.5); NEUTROPHILS % 74.9 % (39.0-77.0); PLATELET COUNT 214 10^3/UL (140-415); RED BLOOD COUNT 3.56 10^6/ul (4.20-5.40); WHITE BLOOD COUNT 8.2 10^3/ul (4.8-10.8)
[2017-04-30 07:34] LABS: IRON 44 ug/dl (35-150)
[2017-04-30 07:42] LABS: ALBUMIN 3.7 g/dl (3.3-4.9); ALBUMIN/GLOBULIN RATIO 1.23; CHOL/HDL RATIO 2.1 RATIO; CREATININE 0.7 mg/dl (0.44-1.00); MAGNESIUM 1.8 mg/dl (1.7-2.5); POTASSIUM 3.4 mmol/L (3.5-5.1); TOTAL PROTEIN 6.7 g/dl (6.1-8.1)
[2017-04-30 07:43] LABS: TOTAL IRON BINDING CAPACITY 362 ug/dl (241-421)
[2017-04-30] MEDS: INSULIN ASPART [NOVOLOG] 3 ML PEN SC SCH ×4 (07:51→20:09)
[2017-04-30] MEDS: LEVOTHYROXINE 100 MCG TAB PO SCH (07:55)
[2017-04-30] MEDS: INSULIN GLARGINE [LANtus] 3 ML PEN SC SCH (07:57)
[2017-04-30 08:36] LABS: THYROID STIMULATING HORMONE 1.3 MIU/L (0.465-4.680)
[2017-04-30] MEDS ORDERED: ASPIRIN (EC) 81 MG TAB PO SCH (09:00)
[2017-04-30] MEDS ORDERED: POTASSIUM CHLORIDE (SR) 10 MEQ TAB PO ONE (09:30)
[2017-04-30] MEDS: LORATADINE 10 MG TAB PO SCH (09:52)
[2017-04-30] MEDS: METOPROLOL 100 MG TAB PO SCH ×2 (09:52→20:03)
[2017-04-30] MEDS: predniSONE 20 MG TAB PO SCH (09:52)
[2017-04-30] MEDS: LISINOPRIL 20 MG TAB PO SCH (09:52)
--- NOTE | 2017-04-30 12:11 | CONS ---
Date/Time of Note Date/Time of Note DATE: 04/30/17 TIME: 12:10 Consult Date/Type/Reason Admit Date/Time Apr 29, 2017 at 02:53 Initial Consult Date 04/29/17 Type of Consultation: Neurology Reason for Consultation eval for new CVA Ordering Provider: JULIANNE PHILLIP Subjective no complaints over night MRI shows chronic infarcts no acute changes Objective Vital Signs Date Time Temp Pulse Resp B/P Pulse Ox O2 Delivery O2 Flow Rate FiO2 04/30/17 11:15 98.5 78 16 185/88 97 04/29/17 02:55 Room Air Intake and Output 04/29/17 04/29/17 04/30/17 15:00 23:00 07:00 Intake Total 950 ml 220 ml Balance 950 ml 220 ml Exam awake and alert oriented x3 some mild expressive aphasia CN: SHLOMO, VFF blinks to threat EOMI no nystagmus v1-3 intact no sig. facial asymmetry palate upgoing uvula midline scm/trap intact tongue midline Motor: no drift in arms or legs Coord no ataxia Results/Medications Result Diagram: 04/30/1762004/30/17 0621 Results 24 hrs Laboratory Tests Test 04/29/17 17:19 04/29/17 21:41 04/30/17 06:21 04/30/17 07:50 Bedside Glucose 154 119 98 White Blood Count 8.2 # Red Blood Count 3.56 L Hemoglobin 9.7 L Hematocrit 30.7 L Mean Corpuscular Volume 86.2 Mean Corpuscular Hemoglobin 27.2 L Mean Corpuscular Hemoglobin Concent 31.6 L Red Cell Distribution Width 17.0 H Platelet Count 214 Mean Platelet Volume 11.1 H Neutrophils % 74.9 Lymphocytes % 14.2 L Monocytes % 8.5 Eosinophils % 1.3 Basophils % 0.7 Nucleated Red Blood Cells % 0.0 Neutrophils # 6.2 Lymphocytes # 1.2 Monocytes # 0.7 Eosinophils # 0.1 Basophils # 0.1 Nucleated Red Blood Cells # 0.0 Sodium Level 143 Potassium Level 3.4 L Chloride Level 104 Carbon Dioxide Level 27 Anion Gap 15 Blood Urea Nitrogen 15 Creatinine 0.70 Glucose Level 90 Hemoglobin A1c 6.5 H Calcium Level 9.0 Phosphorus Level 4.1 Magnesium Level 1.8 Iron Level 44 Total Iron Binding Capacity 362 Percent Iron Saturation 12 L Ferritin 8.9 L Total Bilirubin 1.0 Direct Bilirubin 0.00 Indirect Bilirubin 1.0 Aspartate Amino Transf (AST/SGOT) 34 Alanine Aminotransferase (ALT/SGPT) 32 Alkaline Phosphatase 83 Total Protein 6.7 # Albumin 3.7 # Globulin 3.00 Albumin/Globulin Ratio 1.23 Triglycerides Level 41 Cholesterol Level 101 LDL Cholesterol, Calculated 47 HDL Cholesterol 46 Cholesterol/HDL Ratio 2.1 Thyroid Stimulating Hormone (TSH) 1.300 Test 04/30/17 11:29 Bedside Glucose 100 Medications Current Medications Lorazepam (Ativan) 0.5 mg Q8H PRN PO ANXIETY; Start 04/29/17 at 04:00 Ondansetron HCl (Zofran Inj) 4 mg Q6H PRN IV NAUSEA AND/OR VOMITING; Start at 04:00 Acetaminophen (Tylenol Tab) 650 mg Q6H PRN PO PAIN LEVEL 1-3 OR FEVER; Start at 04:00 Morphine Sulfate (morphine) 2 mg Q4H PRN IV PAIN LEVEL 7-10; Start 04/29/17 at 04:00 Atorvastatin Calcium (Lipitor) 80 mg QHS PO Last administered on 04/29/17 21: 35; Admin Dose 80 MG; Start 04/29/17 at 21:00 Diphenhydramine HCl (Benadryl) 25 mg Q6 PRN PO ITCHING/RASH; Start 04/29/17 at 04:00 Hydralazine HCl (Apresoline) 50 mg BID PO Last administered on 04/30/17 09:51 ; Admin Dose 50 MG; Start 04/29/17 at 09:00 Lisinopril (Zestril) 40 mg DAILY PO Last administered on 04/30/17 09:52; Admin Dose 40 MG; Start 04/29/17 at 09:00 Loratadine (Claritin) 10 mg DAILY PO Last administered on 04/30/17 09:52; Admin Dose 10 MG; Start 04/29/17 at 09:00 Meclizine HCl (Antivert) 25 mg TID PRN PO DIZZINESS; Start 04/29/17 at 04:00 Metoprolol Tartrate (Lopressor) 200 mg BID PO Last administered on 04/30/17 09 :52; Admin Dose 200 MG; Start 04/29/17 at 09:00 Prednisone (Prednisone) 40 mg DAILY PO Last administered on 04/30/17 09:52; Admin Dose 40 MG; Start 04/29/17 at 09:00 Warfarin Sodium (Coumadin) 5 mg DAILY@17 PO Last administered on 04/29/17 17: 22; Admin Dose 5 MG; Start 04/29/17 at 17:00 Diagnostic Test (Pha) (Accu-Chek) 1 ea 02 XX ; Start 04/30/17 at 02:00 Insulin Glargine (Lantus) 11 unit DAILY@08 SC Last administered on 04/30/17 07 :57; Admin Dose 11 UNIT; Start 04/29/17 at 08:00 Miscellaneous Information 1 ea NOTE XX ; Start 04/29/17 at 05:00 Glucose (Glutose) 15 gm Q15M PRN PO DECREASED GLUCOSE; Start 04/29/17 at 05:00 Glucose (Glutose) 22.5 gm Q15M PRN PO DECREASED GLUCOSE; Start 04/29/17 at 05: 00 Dextrose (D50w Syringe) 25 ml Q15M PRN IV DECREASED GLUCOSE; Start 04/29/17 at 05:00 Dextrose (D50w Syringe) 50 ml Q15M PRN IV DECREASED GLUCOSE; Start 04/29/17 at 05:00 Glucagon (Glucagen) 1 mg Q15M PRN IM DECREASED GLUCOSE; Start 04/29/17 at 05:00 Glucose (Glutose) 15 gm Q15M PRN BUCCAL DECREASED GLUCOSE; Start 04/29/17 at 05 :00 Hydralazine HCl (Apresoline) 10 mg Q4H PRN IV ELEVATED BLOOD PRESSURE Last administered on 04/29/17 20:13; Admin Dose 10 MG; Start 04/29/17 at 06:30 Aspirin (Halfprin) 81 mg DAILY PO Last administered on 04/30/17 09:54; Admin Dose 81 MG; Start 04/30/17 at 09:00 Assessment/Plan Chief Complaint/Hosp Course 66 yo female with hx of afib, HTN, HLD, DM w prior Left MCA stroke on Coumadin p /w worsening of symptoms. MRI Brain w/o contrast shows no new changes. HBA1C at LDL at goal follow up duplex c/w Coumadin INR goal 2-3 outpatient neurology follow up advised dc planning Problems: REYNOLD LIANG MD Apr 30, 2017 12:11
[2017-04-30] MEDS: hydrALAzine 20 MG INJ IV PRN (12:34)
[2017-04-30 15:15] LABS: INR 2.32; PROTIME 25.7 Sec (12.2-14.2)
--- NOTE | 2017-04-30 15:24 | RADRPT ---
Echocardiogram Report Patient Name: CHUN SHERIDAN Gender: Female Date: 1950 Study Date: 29-Apr-2017 Speeder Hand: CHARLES Location: [facility] Height(Cm): 168 Weight(Kg): 67 BSA: 1.77 Ref. Physician: VELMA RAMOS Quality: Adequate Procedures: Transthoracic echocardiogram with complete 2D, M-Mode, and doppler examination. Indications: Cerebrovascular Accident. 2D/M Mode Doppler Measurement Value Normal Ranges Measurement Value Normal Ranges AoR Diam MM 3.0 cm AV Peak Roland 1.1 m/sec ACS MM 1.9 cm AV Peak PG 4.7 mmHg LVIDd 2D 4.8 3.5 - 5.6 cm LVOT Peak Roland 0.6 m/sec LVIDs 2D 3.3 2.1 - 4.1 cm LVOT Peak PG 1.4 mmHg LVPWd 2D 1.1 0.6 - 1.1 cm TR Peak Roland 2.9 m/sec IVSd 2D 1.1 0.6 - 1.1 cm TR Peak PG 33.8 mmHg EDV 2D 106.2 cm3 PV Peak Roland 0.8 m/sec ESV 2D 36.4 cm3 PV Peak PG 3.0 mmHg LA Dimen 2D 4.6 2.3 - 4.0 cm RVSP 36.8 mmHg Findings Left Ventricle: Normal left ventricular systolic function. Normal left ventricular cavity size. Normal left ventricular wall thickness. Ejection fraction is visually estimated at 60 %. Tissue Doppler/Mitral Doppler indices are indeterminate in this study due to the presence of atrial fibrillation. E/E`=6. Right Ventricle: Normal right ventricular size. Normal right ventricular systolic function. Left Atrium: There is severe enlargement of left atrium, best appreciated by apical LA volumes. LA Volume Index=74. Right Atrium: There is severe enlargement of right atrium. Atrial Septum: Atrial septum color Doppler interrogation consistent with a PFO. Mitral Valve: Normal appearance of the mitral valve. Mild mitral annular calcification. Mild mitral valve regurgitation. Aortic Valve: No significant aortic stenosis or insufficiency. Normal trileaflet aortic valve structure. Tricuspid Valve: Normal appearance of the tricuspid valve. Estimated peak PA systolic pressure 37 mmHg. There is mild tricuspid regurgitation. Pulmonic Valve: Normal pulmonic valve appearance. There is trace pulmonic regurgitation. Pericardium: Normal pericardium with no significant pericardial effusion. Aorta: Normal aortic root. IVC: Normal size and normal respiratory collapse consistent with normal right atrial pressure. Pulmonary Artery: Normal pulmonary artery size. Conclusions Normal left ventricular systolic function. Normal left ventricular cavity size. Normal left ventricular wall thickness. Ejection fraction is visually estimated at 60 %. Tissue Doppler/Mitral Doppler indices are indeterminate in this study due to the presence of atrial fibrillation. E/E`=6. There is severe enlargement of left atrium, best appreciated by apical LA volumes. LA Volume Index=74. There is severe enlargement of right atrium. Atrial septum color Doppler interrogation consistent with a PFO. Normal appearance of the mitral valve. Mild mitral annular calcification. Mild mitral valve regurgitation. Normal appearance of the tricuspid valve. Estimated peak PA systolic pressure 37 mmHg. There is mild tricuspid regurgitation. Normal pulmonic valve appearance. There is trace pulmonic regurgitation. Electronically Signed By: Indio Edgar 30-Apr-2017 15:23:23 -0700 Patient Name: CHUN SHERIDAN Study Date: 29-Apr-2017 [id number]
--- NOTE | 2017-04-30 15:54 | PDOCDIS ---
Discharge Instructions DIAGNOSIS Discharge Diagnosis Possible TIA. CONDITION Patient Condition: Stable HOME CARE INSTRUCTIONS: Diet Instructions: Low Fat /CholesterolSpecial Diet: diabetic FOLLOW UP/APPOINTMENTS Follow-up Plan Jefry Hernandez MD Specialty: Internal Medicine Office Address: [address] [place] [address] [place], [place] [id number] Office OTHER ORDERS: Other Orders: 1. Take a carbohydrate controlled, low-cholesterol diet. 2. Take medications as per prescription. 3. Resume activities as tolerated. 4. Follow-up with your primary care physician 1 week. If you do not have a primary care physician, please call Dr. Jefry Hernandez's office. 5. Please call 911 if you have any sudden onset of focal weakness, sudden onset of speech disturbances, or any other unusual signs/symptoms. CELSO VO NP Apr 30, 2017 15:54
[2017-04-30] MEDS ORDERED: HYDR-3672 PO (15:57)
[2017-04-30] MEDS ORDERED: FER325 PO (16:02)
[2017-04-30] MEDS: WARFARIN 5 MG TAB PO SCH (17:00)
--- NOTE | 2017-04-30 17:03 | DS ---
Date/Time of Note Date/Time of Note DATE: 04/30/17 TIME: 17:03 Discharge Summary Admission/Discharge Info Admit Date/Time Apr 29, 2017 at 02:53 Discharge Date/Time Discharge Diagnosis 1. Transient episode of worsening of chronic CVA. Ruled out acute stroke. 2. Atrial fibrillation. 3. Essential hypertension. 4. Hypothyroidism. 5. Type 2 diabetes mellitus. 6. Iron deficiency anemia. 7. Dyslipidemia. 8. Old infarcts involving posterior left MCA distribution and posterior watershed MCA / CHILD DEVELOPMENT SPECIALIST distribution. 9. Atrial septum color Doppler interrogation consistent with a PFO on 2D echocardiogram. Patient Condition: Stable Consults Telma Galloway MD, Neurology. Procedures Brain CT IMPRESSION: 1. Remote large left MCA territory and posterior left watershed territory infarcts. 2. Small posterior right watershed infarct. 3. These findings are without significant change since 07/14/2016. 4. Otherwise, no acute process in the head. Brain MRI IMPRESSION: 1. No acute intracranial hemorrhage, infarction or mass. 2. Mild chronic small vessel ischemic changes. 3. Old infarcts involving posterior left MCA distribution and posterior watershed MCA / CHILD DEVELOPMENT SPECIALIST distribution. 4. Old right parietal cortical infarct is noted. 5. Mild generalized cerebral volume loss. CXR IMPRESSION: No evidence for active cardiopulmonary disease. 2D Echocardiogram Conclusions Normal left ventricular systolic function. Normal left ventricular cavity size. Normal left ventricular wall thickness. Ejection fraction is visually estimated at 60 %. Tissue Doppler/Mitral Doppler indices are indeterminate in this study due to the presence of atrial fibrillation. E/E`=6. There is severe enlargement of left atrium, best appreciated by apical LA volumes. LA Volume Index=74. There is severe enlargement of right atrium. Atrial septum color Doppler interrogation consistent with a PFO. Normal appearance of the mitral valve. Mild mitral annular calcification. Mild mitral valve regurgitation. Normal appearance of the tricuspid valve. Estimated peak PA systolic pressure 37 mmHg. There is mild tricuspid regurgitation. Normal pulmonic valve appearance. There is trace pulmonic regurgitation. Hx of Present Illness This is a 66-year-old female with a history of atrial fibrillation, diabetes, hypothyroidism, hypertension, dyslipidemia and CVA with residual deficits including expressive aphasia who was brought to the emergency room because of worsening symptoms of weakness. The patient was admitted to the hospital for further evaluation Hospital Course The patient was admitted to inpatient telemetry floor. A neurology consult was obtained. The patient underwent a brain CT scan that showed a remote large left MCA territory and posterior left watershed territory infarcts with small posterior right watershed infarct with no changes from her prior CT scan on 07/14. The patient also underwent a brain MRI that did not show any evidence of acute stroke. The patient was maintained on statins, aspirin, and Coumadin. The patient was already on Coumadin for her underlying atrial fibrillation. The patient had uncontrolled blood pressures in the emergency room. The patient 's blood pressure was gradually lowered down with improvement the patient's blood pressure readings. The patient also has underlying dyslipidemia. The patient was maintained on statins. The patient's lipid level was optimal. The patient also had underlying iron deficiency. The patient will be discharged home on iron supplements. Patient has underlying type 2 diabetes mellitus. The patient's hemoglobin A1c was found to be 6.5 indicating good blood glucose control over the past few weeks. The patient has history of hypothyroidism. The patient was maintained on Synthroid for the same. The patient was evaluated by physical therapy. Physical therapy recommended no DME upon discharge. However, physical therapy recommended home health physical therapy. This will be ordered upon discharge. The patient was also evaluated by speech therapist. Speech therapy recommended mechanical soft bite sized diet with thin liquids and straw. Patient's urine culture showed gram-negative rods but the colony count of 10,000-20,000 CFU per mL. The patient had no complaints of dysuria, frequency, or urgency. Patient remained afebrile. There was no associated leukocytosis. Hence the patient was not started on any antibiotics. Patient had a stable hospital course. The patient was cleared by neurology to be discharged home. Discharge Instructions 1. Take a carbohydrate controlled, low-cholesterol diet. 2. Take medications as per prescription. 3. Resume activities as tolerated. 4. Follow-up with your primary care physician 1 week. If you do not have a primary care physician, please call Dr. Jefry Hernandez's office. 5. Please call 911 if you have any sudden onset of focal weakness, sudden onset of speech disturbances, or any other unusual signs/symptoms. The patient verbalized understanding of her discharge instructions. At this time I would like to thank for seeing the patient and providing clinical recommendations. Case discussed with Dr. Estrada. Home Meds Active Scripts Ferrous Sulfate* (Ferrous Sulfate*) 325 Mg Tabec, 325 MG PO BID, #60 TAB Prov:CELSO VO PUBLIC SAFETY DIRECTOR 04/30/17 Hydralazine Hcl* (Hydralazine Hcl*) 50 Mg Tab, 50 MG PO TID, #90 TAB Prov:CELSO VO PUBLIC SAFETY DIRECTOR 04/30/17 Meclizine Hcl* (Antivert*) 12.5 Mg Tab, 25 MG PO TID Y for DIZZINESS, #15 TAB Prov:SARAH LIMA MD 04/16/17 Reported Medications Atorvastatin* (Atorvastatin*) 80 Mg Tablet, 80 MG PO QHS, #30 TAB 07/14/16 Lisinopril* (Lisinopril*) 20 Mg Tablet, 40 MG PO DAILY, #30 TAB 07/14/16 Levothyroxine Sodium* (Levothyroxine Sodium*) 100 Mcg Tablet, 100 MCG PO AC BREAKFAST, TAB 02/13/15 Warfarin Sodium* (Coumadin*) 5 Mg Tablet, 5 MG PO DAILY, TAB TAKE MON,MOI,FR-7.5MG AND T,TH,SAT,JUARES-5MG 02/13/15 Metformin* (Glucophage*) 500 Mg Tab, 500 MG PO WITH MEALS, TAB 02/13/15 Metoprolol (Lopressor) 100 Mg Tablet, 200 MG PO BID 12/04/13 Discontinued Reported Medications Loratadine* (Loratadine*) 10 Mg Tablet, 10 MG PO DAILY, #30 TAB 07/14/16 Hydralazine Hcl* (Hydralazine Hcl*) 25 Mg Tab, 50 MG PO BID, #120 TAB 07/14/16 Discontinued Scripts Diphenhydramine Hcl* (Benadryl*) 25 Mg Cap, 25 MG PO Q6 Y for ITCHING/RASH, #30 TAB Prov:FATUMA FERRER 01/21/17 Prednisone* (Prednisone*) 20 Mg Tab, 40 MG PO DAILY for 3 Days, TAB Prov:FATUMA FERRER F 01/21/17 Follow-up Plan Please follow-up with your primary care physician 1 week. If you do not have a primary care physician, please call Dr. Jefry Hernandez's office. Primary Care Provider Not On Staff Doctor Time spent on discharge: > 30 minutes Pending Labs Laboratory Tests Test 04/29/17 17:19 04/29/17 21:41 04/30/17 06:21 04/30/17 07:50 Bedside Glucose 154mg/dL (70-220) 119mg/dL (70-220) 98mg/dL (70-220) White Blood Count 8.210^3/ul (4.8-10.8) Red Blood Count 3.5610^6/ul (4.20-5.40) Hemoglobin 9.7g/dl (12.0-16.0) Hematocrit 30.7% (37.0-47.0) Mean Corpuscular Volume 86.2fl (82.0-101.0) Mean Corpuscular Hemoglobin 27.2pg (29.0-33.0) Mean Corpuscular Hemoglobin Concent 31.6g/dl (32.0-37.0) Red Cell Distribution Width 17.0% (11.5-14.5) Platelet Count 53158^3/UL (140-415) Mean Platelet Volume 11.1fl (7.4-10.4) Neutrophils % 74.9% (39.0-77.0) Lymphocytes % 14.2% (15.0-51.0) Monocytes % 8.5% (0.0-11.0) Eosinophils % 1.3% (0.0-7.0) Basophils % 0.7% (0.0-2.0) Nucleated Red Blood Cells % 0.0/100WBC (0.0-0.0) Neutrophils # 6.210^3/ul (1.6-7.5) Lymphocytes # 1.210^3/ul (0.8-2.9) Monocytes # 0.710^3/ul (0.3-0.9) Eosinophils # 0.110^3/ul (0.0-0.5) Basophils # 0.110^3/ul (0.0-0.1) Nucleated Red Blood Cells # 0.010^3/ul (0.0-0.0) Sodium Level 143mmol/L (135-144) Potassium Level 3.4mmol/L (3.5-5.1) Chloride Level 104mmol/L (97-110) Carbon Dioxide Level 27mmol/L (21-31) Anion Gap 15 (8-16) Blood Urea Nitrogen 15mg/dl (7-20) Creatinine 0.70mg/dl (0.44-1.00) Glucose Level 90mg/dl (70-220) Hemoglobin A1c 6.5% (0-5.9) Calcium Level 9.0mg/dl (8.4-10.2) Phosphorus Level 4.1mg/dl (2.5-4.9) Magnesium Level 1.8mg/dl (1.7-2.5) Iron Level 44ug/dl (35-150) Total Iron Binding Capacity 362ug/dl (241-421) Percent Iron Saturation 12% SAT (22-52) Ferritin 8.9ng/ml (11.1-264.0) Total Bilirubin 1.0mg/dl (0.2-1.3) Direct Bilirubin 0.00mg/dl (0.00-0.20) Indirect Bilirubin 1.0mg/dl (0-1.1) Aspartate Amino Transf (AST/SGOT) 34IU/L (15-46) Alanine Aminotransferase (ALT/SGPT) 32IU/L (13-69) Alkaline Phosphatase 83IU/L (42-121) Total Protein 6.7g/dl (6.1-8.1) Albumin 3.7g/dl (3.3-4.9) Globulin 3.00g/dl (1.3-3.2) Albumin/Globulin Ratio 1.23 Triglycerides Level 41mg/dl (0-149) Cholesterol Level 101mg/dl (100-200) LDL Cholesterol, Calculated 47mg/dl HDL Cholesterol 46mg/dl (35-98) Cholesterol/HDL Ratio 2.1RATIO Thyroid Stimulating Hormone (TSH) 1.300MIU/L (0.465-4.680) Test 04/30/17 11:29 04/30/17 14:44 Bedside Glucose 100mg/dL (70-220) Prothrombin Time 25.7Sec (12.2-14.2) Prothrombin Time Ratio 2.0 INR International Normalized Ratio 2.32 CELSO VO NP Apr 30, 2017 17:03
[2017-04-30] MEDS: ATORVASTATIN 80 MG TAB PO SCH (20:01)
== END 2017-04-30 21:02 | disposition home health service (06) | DRG 948 ==
LOC: E/R → TEL 02:53
PROVIDERS: ADMIT Internal Medicine; ATTEND Internal Medicine
DX: R53.1 Weakness (principal); E11.51 Type 2 diabetes mellitus with diabetic peripheral angiopathy without gangrene; I48.91 Unspecified atrial fibrillation; Q21.1 Atrial septal defect; I10 Essential (primary) hypertension; E03.9 Hypothyroidism, unspecified; E78.00 Pure hypercholesterolemia, unspecified; Z79.01 Long term (current) use of anticoagulants; Z79.84 Long term (current) use of oral hypoglycemic drugs; I69.320 Aphasia following cerebral infarction; I16.0 Hypertensive urgency; D50.9 Iron deficiency anemia, unspecified
CPT/HCPCS: 36415; 70450; 70551; 71010; 80053; 80061; 81001; 82728; 82962; 83036; 83540; 83735; 84100; 84443; 84484; 85025; 85610; 85730; 87086; 92610; 93005; 93306; 97162; J0360; J1815; J7030; J7512

== ENCOUNTER 2017-09-26 22:40 | Emergency (ER) | payer MEDICAID ==
[~2017-09-26] VITALS: Ht 160 cm; Wt 70.5 kg
[~2017-09-26 22:40] MED LIST changes: -BEN25 PO; +FER325 PO; -HYDR-3671 PO; +HYDR-3672 PO; -LORA10TA3 PO; -PRED20TA PO
[2017-09-26 22:55] VITALS: Ht 160 cm; Wt 70.5 kg
[2017-09-27] MEDS ORDERED: HYDROmorphONE 2 MG TAB PO ONE (00:30)
--- NOTE | 2017-09-27 00:51 | RADRPT ---
PROCEDURE: Portable chest x-ray. CLINICAL INDICATION: Chest pain. TECHNIQUE: Portable AP view of the chest. COMPARISON: 07/14/2016. FINDINGS: No pulmonary edema or conolidation is identified. The cardiac silhouette is mildly enlarged. There are aortic calcifications. No pleural effusion is seen. There is no pneumothorax. IMPRESSION: 1. No evidence of acute cardiopulmonary disease. 2. Mildly enlarged cardiac silhouette and aortic atherosclerosis. RPTAT: HTAR .Kaushal Reed MD, MD Date Time Electronically viewed and signed by .Kaushal Reed MD, MD on 09/27/2017 00:51 .R/
[2017-09-27 01:00] VITALS: BP 180/89; PULSE 60; RESP 18; TEMP 98
[2017-09-27 01:10] LABS: INR 1.79; PROTIME 21.2 Sec (11.9-14.9); PT RATIO 1.7
[2017-09-27 01:11] LABS: PARTIAL THROMBOPLASTIN TIME 34.4 Sec (25.0-35.0)
[2017-09-27] MEDS ORDERED: HYDR-906 PO (02:27)
[2017-09-27] MEDS ORDERED: IBUP-1542 PO (02:27)
--- NOTE | 2017-09-27 02:32 | ERD ---
ER Documentation Chief Complaint Chief Complaint chest pain x 1 hour HPI This is a 67-year-old female with a history of prior stroke who is complaining of left chest wall and left posterior chest wall pain onset about 1 hour ago. The patient is here with her daughter who states that she likes to clean a lot. The patient says her pain is sharp in the entire left chest and left posterior rib cage she says it hurts to move. No shortness of breath no diaphoresis no nausea palpitations. Patient is a history of chronic a fibrillation on Coumadin. No tachycardia no dizziness or syncope ROS All systems reviewed and are negative except as per history of present illness. Medications Home Meds Active Scripts Hydrocodone/Acetaminophen ([place] 5-325 Tablet) 1 Each Tablet, 1 TAB PO Q6H Y for PAIN, #14 TAB Prov:HAYDEE PARKER DO 09/27/17 Ibuprofen* (Motrin*) 600 Mg Tab, 600 MG PO Q8, #30 TAB Prov:HAYDEE PARKER DO 09/27/17 Ferrous Sulfate* (Ferrous Sulfate*) 325 Mg Tabec, 325 MG PO BID, #60 TAB Prov:CELSO VO NP 04/30/17 Hydralazine Hcl* (Hydralazine Hcl*) 50 Mg Tab, 50 MG PO TID, #90 TAB Prov:CELSO VO NP 04/30/17 Meclizine Hcl* (Antivert*) 12.5 Mg Tab, 25 MG PO TID Y for DIZZINESS, #15 TAB Prov:SARAH LIMA MD 04/16/17 Reported Medications Atorvastatin* (Atorvastatin*) 80 Mg Tablet, 80 MG PO QHS, #30 TAB 07/14/16 Lisinopril* (Lisinopril*) 20 Mg Tablet, 40 MG PO DAILY, #30 TAB 07/14/16 Levothyroxine Sodium* (Levothyroxine Sodium*) 100 Mcg Tablet, 100 MCG PO AC BREAKFAST, TAB 02/13/15 Warfarin Sodium* (Coumadin*) 5 Mg Tablet, 5 MG PO DAILY, TAB TAKE MON,MOI,FR-7.5MG AND T,TH,SAT,JUARES-5MG 02/13/15 Metformin* (Glucophage*) 500 Mg Tab, 500 MG PO WITH MEALS, TAB 02/13/15 Metoprolol (Lopressor) 100 Mg Tablet, 200 MG PO BID 12/04/13 Allergies Allergies: Coded Allergies: No Known Allergy (Unverified , 07/14/16) PMhx/Soc History of Surgery: No Anesthesia Reaction: No Hx Neurological Disorder: Yes (cva) Hx Respiratory Disorders: No Hx Cardiac Disorders: No (htn, high cholesterol) Hx Psychiatric Problems: No Hx Miscellaneous Medical Probl: Yes (md) Hx Alcohol Use: No Hx Substance Use: No Hx Tobacco Use: No Smoking Status: Never smoker FmHx Family History: No coronary disease Physical Exam Vitals Vital Signs Date Time Temp Pulse Resp B/P Pulse Ox O2 Delivery O2 Flow Rate FiO2 09/27/17 01:00 98.0 60 18 180/89 98 Room Air 09/26/17 22:55 98.0 64 20 200/87 98 Physical Exam Const: Well-developed, well-nourished Head: Atraumatic, normocephalic Eyes: Normal Conjunctiva, PERRLA, EOMI, normal sclera, no nystagmus ENT: Normal External Ears, Nose and Mouth, moist mucus membranes. Neck: Full range of motion. No meningismus, no lymphadenopathy. Resp: Clear to auscultation bilaterally, no wheezing, rhonchi, rales, left mid and upper chest wall is extremely tender to palpation with 100% reducible pain., The left posterior rib cage at the mid and upper rib cage is also tender to palpation. There is reproducible pain with range of motion of the left arm Cardio: Irregular rhythm with normal rate no murmurs, S1 S2 present] Abd: Soft, non tender x 4, non distended. Normal bowel sounds, no guarding or rebound, no pulsitile abdominal masses or bruits Skin: No petechiae or rashes, no ecchymosis , no maculopapular rash Back: No midline or flank tenderness Ext: No cyanosis, or edema, FROM x 4, normal inspection, neurovascularly intact x 4 Neur: Awake and alert, STR 5/5 x 4, sensation intact x 4, no focal findings, cerebellum intact Psych: Normal Mood and Affect Results 24 hrs Laboratory Tests Test 09/27/17 00:39 Prothrombin Time 21.2Sec Prothrombin Time Ratio 1.7 INR International Normalized Ratio 1.79 Activated Partial Thromboplast Time 34.4Sec Troponin I < 0.012ng/ml Current Medications Medications (Trade) Dose Ordered Sig/Roberto Route PRN Reason Start Time Stop Time Status Last Admin Dose Admin Hydromorphone HCl (Dilaudid) 2 mg ONCE ONCE PO 09/27/17 00:30 09/27/17 00:31 DC 09/27/17 01:30 Procedures/MDM EKG: Rate/Rhythm: Heart rate 68 atrial fibrillation QRS, ST, QT: NORMAL, QRS, QT] Impression: Atrial fibrillation PROCEDURE: Portable chest x-ray. CLINICAL INDICATION: Chest pain. TECHNIQUE: Portable AP view of the chest. COMPARISON: 07/14/2016. FINDINGS: No pulmonary edema or conolidation is identified. The cardiac silhouette is mildly enlarged. There are aortic calcifications. No pleural effusion is seen. There is no pneumothorax. IMPRESSION: 1. No evidence of acute cardiopulmonary disease. 2. Mildly enlarged cardiac silhouette and aortic atherosclerosis. RPTAT: HTAR .Kaushal Reed MD, MD Date Time Electronically viewed and signed by .Kaushal Reed MD, on 09/27/2017 00:51 .R/ CC: HAYDEE PARKER DO Troponin is negative. I feel the patient's chest pain is clearly chest wall in origin. Her pain is reproducible to palpation and with movement of the left arm. After medication she says she feels much better. Reexamination demonstrates minimal pain Departure Diagnosis: Primary Impression: Chest wall pain Condition: Stable Patient Instructions: Chest Wall Pain, Costochondritis HADYEE PARKER DO Sep 27, 2017 02:32
== END 2017-09-27 02:42 | disposition home or self-care (01) ==
LOC: E/R 22:40
DX: R07.89 Other chest pain (principal); I10 Essential (primary) hypertension; Z79.01 Long term (current) use of anticoagulants; Z79.84 Long term (current) use of oral hypoglycemic drugs
CPT/HCPCS: 36415; 71010; 84484; 85610; 85730; J1170; Z7502

== ENCOUNTER 2018-08-12 15:56 | Observation (INO) | END 2018-08-13 18:30 | disposition home or self-care (01) ==

== ENCOUNTER 2019-01-04 21:26 | Inpatient (IN) | payer MEDICAID ==
[~2019-01-04] VITALS: Ht 157.5 cm; Wt 69.0 kg
[~2019-01-04 21:26] MED LIST changes: +ATOR-2 PO; -ATOR80TA75 PO; -HYDR-3672 PO; +HYDR100T25 PO; +LEVO100T8 PO; -LEVO100T87 PO; -LISI20TA11 PO; +LISI40TA3 PO; +LORA10TA3 PO; -MECL12.574 PO; +METF500T3 PO; -METF500T4 PO; +OMEP20CA16 PO; +WARF5TAB PO; -WARF5TAB72 PO
[2019-01-04] MEDS ORDERED: IOHEXOL 100 ML ONE (21:49)
[2019-01-04] MEDS ORDERED: SOD CHLORIDE 0.9% 100 ML ONE (21:49)
--- NOTE | 2019-01-04 22:10 | ERD ---
ER Documentation Chief Complaint Chief Complaint generalized weakness, r-sided facial weakness, slurred speech X 1 hr HPI This is a 68-year-old female with a prior history of large left MCA stroke, history of diabetes, who presents for evaluation of a sensation of slurred speech, and right facial numbness for about the last 3 weeks. Of note the triage note states that she has been having symptoms for the last hour, however this provider, the patient specifically stated that the symptoms been going on for weeks, and it is her blood pressure that primarily brought her in, as she did not realize that it was as high as it was when she checked it today. This was her main concern. Symptoms are intermittent, there are no alleviating or aggravating factors. She has not a fever, she denies chest pain. ROS All systems reviewed and are negative except as per history of present illness. Medications Home Meds Reported Medications Ferrous Sulfate* (Ferrous Sulfate*) 325 Mg Tabec, 650 MG PO DAILY, TAB 08/12/18 Metformin Hcl* (Metformin Hcl* ER) 500 Mg Tab.sr.24h, 500 MG PO DAILY, #30 TAB 08/12/18 Omeprazole* (Omeprazole*) 20 Mg Capsule.dr, 20 MG PO AC BREAKFAST, #30 CAP 08/12/18 Lisinopril* (Lisinopril*) 40 Mg Tablet, 40 MG PO BID, #30 TAB 08/12/18 Loratadine* (Loratadine*) 10 Mg Tablet, 10 MG PO DAILY, #30 TAB 08/12/18 Hydralazine Hcl* (Hydralazine Hcl*) 100 Mg Tablet, 100 MG PO Q8, #90 TAB 08/12/18 Atorvastatin* (Atorvastatin*) 80 Mg Tablet, 80 MG PO QHS, #30 TAB 07/14/16 Levothyroxine Sodium* (Levothyroxine Sodium*) 100 Mcg Tablet, 100 MCG PO AC BREAKFAST, TAB 02/13/15 Warfarin Sodium* (Coumadin*) 5 Mg Tablet, 5 MG PO DAILY, TAB TAKE MON,MOI,FR-5MG AND T,TH,SAT,JUARES-7.5MG 02/13/15 Metoprolol (Lopressor) 100 Mg Tablet, 100 MG PO BID 12/04/13 Allergies Allergies: Coded Allergies: No Known Allergy (Unverified , 08/12/18) PMhx/Soc History of Surgery: Yes Anesthesia Reaction: No Hx Neurological Disorder: No Hx Respiratory Disorders: No Hx Cardiac Disorders: Yes Hx Psychiatric Problems: Yes Hx Miscellaneous Medical Probl: Yes (CVA x 3 with residual aphasia, memory deficits, Afib, HTN, DM, RLE weakness) Hx Alcohol Use: No Hx Substance Use: No Hx Tobacco Use: No Smoking Status: Never smoker Physical Exam Vitals Vital Signs Date Temp Pulse Resp B/P (MAP) Pulse Ox O2 O2 Flow FiO2 Time Delivery Rate 01/05/19 85 18 147/86 100 Room Air 00:00 (106) 01/04/19 62 14 191/81 98 Room Air 22:15 (117) 01/04/19 Nasal 2 21:52 Cannula 01/04/19 97.7 60 18 232/100 99 21:35 (144) Physical Exam Const: Elderly appearing female, well-developed well-nourished Head: Atraumatic Eyes: Normal Conjunctiva pupils equal round ENT: Normal External Ears, Nose and Mouth. Neck: Full range of motion. No meningismus. Resp: Clear to auscultation bilaterally, no wheezes rales or rhonchi Cardio: Regular rate and rhythm, no murmurs Abd: Soft, non tender, non distended. Normal bowel sounds Skin: No petechiae or rashes Back: No midline or flank tenderness Ext: No cyanosis, or edema Neur: Awake and alert, cranial nerves II 12 intact, no pronator drift noted, speech is intact, patient is alert and oriented x4 Psych: Normal Mood and Affect Result Diagram: 01/04/19214401/04/192144 Results 24 hrs Laboratory Tests Test 01/04/19 21:45 01/04/19 21:48 01/04/19 22:45 White Blood Count 5.6 10^3/ul Red Blood Count 3.73 10^6/ul Hemoglobin 12.2 g/dl Hematocrit 37.6 % Mean Corpuscular Volume 100.8 fl Mean Corpuscular Hemoglobin 32.7 pg Mean Corpuscular 32.4 g/dl Hemoglobin Concent Red Cell Distribution Width 13.7 % Platelet Count 170 10^3/UL Mean Platelet Volume 10.7 fl Immature Granulocytes % 0.400 % Neutrophils % 68.3 % Lymphocytes % 19.6 % Monocytes % 7.2 % Eosinophils % 3.4 % Basophils % 1.1 % Nucleated Red Blood Cells % 0.0 /100WBC Immature Granulocytes # 0.020 10^3/ul Neutrophils # 3.8 10^3/ul Lymphocytes # 1.1 10^3/ul Monocytes # 0.4 10^3/ul Eosinophils # 0.2 10^3/ul Basophils # 0.1 10^3/ul Nucleated Red Blood Cells # 0.0 10^3/ul Prothrombin Time 17.5 Sec Prothrombin Time Ratio 1.4 INR International 1.42 Normalized Ratio Activated Partial Thromboplast 34.9 Sec Time Sodium Level 139 mmol/L Potassium Level 3.5 mmol/L Chloride Level 103 mmol/L Carbon Dioxide Level 26 mmol/L Anion Gap 10 Blood Urea Nitrogen 11 mg/dl Creatinine 0.56 mg/dl Est Glomerular Filtrat > 60 mL/min Rate mL/min Glucose Level 126 mg/dl Hemoglobin A1c 5.8 % Calcium Level 9.7 mg/dl Troponin I < 0.012 ng/ml Triglycerides Level 45 mg/dl Cholesterol Level 113 mg/dl LDL Cholesterol, Calculated 46 mg/dl HDL Cholesterol 58 mg/dl Cholesterol/HDL Ratio 1.9 RATIO Bedside Glucose 116 mg/dL Urine Color STRAW Urine Clarity CLEAR Urine pH 7.0 Urine Specific [place] 1.011 Urine Ketones NEGATIVE mg/dL Urine Nitrite NEGATIVE mg/dL Urine Bilirubin NEGATIVE mg/dL Urine Urobilinogen NEGATIVE mg/dL Urine Leukocyte Esterase NEGATIVE Zander/ul Urine Microscopic RBC 0 /HPF Urine Microscopic WBC 1 /HPF Urine Hemoglobin NEGATIVE mg/dL Urine Glucose NEGATIVE mg/dL Urine Total Protein 1+ mg/dl Urine Opiates Screen Negative Urine Barbiturates Negative Urine Amphetamines Screen Negative Urine Benzodiazepines Screen Negative Urine Cocaine Screen Negative Urine Cannabinoids Negative Current Medications Medications Dose Sig/Roberto Start Time Status Last (Trade) Ordered Route PRN Stop Time Admin Dose Reason Admin Sodium 100 ml @ ud STK-MED 01/04/19 DC Chloride ONCE .ROUTE 21:49 01/04/19 21:50 Iohexol 100 ml @ ud STK-MED 01/04/19 DC ONCE .ROUTE 21:49 01/04/19 21:50 Labetalol 10 mg ONCE ONCE 01/04/19 DC 01/04/19 HCl IV 22:30 22:20 (Labetalol) 01/04/19 22:31 Procedures/MDM This 68-year-old female with a prior history of large left MCA stroke, who p resents for evaluation of hypertension, as well as right facial numbness and slurred speech, symptoms have been ongoing for the last 3 weeks. Given the prolonged nature of her symptoms, the patient would not be a candidate for TPA, additionally they are intermittent in nature. Her initial blood pressure was 230 systolic she was given a dose of labetalol, and her blood pressure improved to below 200 systolic. She had no evidence of encephalopathy. Her CT and CTA were negative for acute findings, her lab work was otherwise unremarkable. At this point I suspect most likely possible TIA, and given her strong risk factor she warrants admission for further evaluation and management. Accepting Care Team: Current data and ongoing care discussed. Primary: [employer]: None Outstanding Data: none EKG: Rate/Rhythm: Atrial fib with slow ventricular response QRS, ST, T-waves: No changes consistent w/ acute ischemia Impression: No evidence of ischemia or arrhythmia Departure Diagnosis: Primary Impression: Acute weakness Additional Impressions: Hypertension Hypertension type: unspecified Qualified Codes: I10 - Essential (primary) hypertension TIA (transient ischemic attack) Condition: Stable SARAH SÁNCHEZ MD Jan 04, 2019 22:10
[2019-01-04] MEDS ORDERED: LABETALOL HCL 20MG INJ IV ONE (22:30)
[2019-01-05] VITALS (11 sets, daily range): BP systolic 128–183; BP diastolic 78–92; PULSE 45–87; RESP 16–20; Ht 157.5 cm; Wt 69.0 kg
[2019-01-05] MEDS ORDERED: ASPIRIN 81 MG TAB PO ONE (00:30)
[2019-01-05] MEDS ORDERED: GLUCOSE GEL 15 GRAM TUBE BUCCAL PRN (07:00)
[2019-01-05] MEDS ORDERED: ONDANSETRON 4 MG INJ IV PRN (07:00)
[2019-01-05] MEDS ORDERED: GLUCAGON 1 MG INJ IM PRN (07:00)
[2019-01-05] MEDS ORDERED: ACETAMINOPHEN 325 MG TAB PO PRN (07:00)
[2019-01-05] MEDS ORDERED: NACL 0.9% 3 ML SYG IV SCH (07:00)
[2019-01-05] MEDS ORDERED: DEXTROSE 50% 50 ML SYRINGE IV PRN ×2 (07:00)
[2019-01-05] MEDS ORDERED: GLUCOSE GEL 15 GRAM TUBE PO PRN ×2 (07:00)
--- NOTE | 2019-01-05 08:39 | HP ---
Date/Time of Note Date/Time of Note DATE: 01/05/19 TIME: 08:33 Assessment/Plan VTE Prophylaxis Pharmacological prophylaxis: warfarin tx Lines/Catheters IV [facility] Saline Lock Urinary Cath still in place: No Assessment/Plan Assessment/Plan 1. Facial numbness and slurred speech, rule out CVA -Patient with a history of multiple CVAs. -Head CT and CT angiogram of the head and neck only shows old stroke, no acute findings -Obtain MRI -Aspirin, statin -Neurology consult -PT and speech/swallow eval 2. Left upper extremity pain and weakness: On physical exam, patient has full range of motion, but has noticeable pain. No obvious deformity noted -Obtain x-ray -Additional imaging as needed -Stroke work-up as mentioned above 3. Hypertensive emergency: BP better controlled. Adjust antihypertensive as needed 4. Type 2 diabetes: Insulin while in-house 5. Hypothyroidism: Continue Synthroid Result Diagram: 01/04/19214401/04/192144 Results 24hrs Laboratory Tests Test 01/04/19 21:45 01/04/19 21:48 01/04/19 22:45 01/05/19 07:26 White Blood Count 5.6 # Pending Red Blood Count 3.73 L Pending Hemoglobin 12.2 Pending Hematocrit 37.6 Pending Mean Corpuscular 100.8 Pending Volume Mean Corpuscular 32.7 Pending Hemoglobin Mean Corpuscular 32.4 Pending Hemoglobin Concent Red Cell 13.7 Pending Distribution Width Platelet Count 170 Pending Mean Platelet Volume 10.7 H Pending Immature 0.400 Granulocytes % Neutrophils % 68.3 Lymphocytes % 19.6 Monocytes % 7.2 Eosinophils % 3.4 Basophils % 1.1 Nucleated Red Blood 0.0 Cells % Immature 0.020 Granulocytes # Neutrophils # 3.8 Lymphocytes # 1.1 Monocytes # 0.4 Eosinophils # 0.2 Basophils # 0.1 Nucleated Red Blood 0.0 Cells # Prothrombin Time 17.5 #H Prothrombin Time 1.4 Ratio INR International 1.42 Normalized Ratio Activated 34.9 Partial Thromboplast Time Sodium Level 139 Potassium Level 3.5 Chloride Level 103 Carbon Dioxide Level 26 Anion Gap 10 Blood Urea Nitrogen 11 Creatinine 0.56 Est Glomerular > 60 Filtrat Rate mL/min Glucose Level 126 Hemoglobin A1c 5.8 Calcium Level 9.7 Troponin I < 0.012 Triglycerides Level 45 Cholesterol Level 113 LDL Cholesterol, 46 Calculated HDL Cholesterol 58 Cholesterol/HDL 1.9 Ratio Bedside Glucose 116 Urine Color STRAW Urine Clarity CLEAR Urine pH 7.0 Urine Specific 1.011 [place] Urine Ketones NEGATIVE Urine Nitrite NEGATIVE Urine Bilirubin NEGATIVE Urine Urobilinogen NEGATIVE Urine Leukocyte NEGATIVE Esterase Urine Microscopic 0 RBC Urine Microscopic 1 WBC Urine Hemoglobin NEGATIVE Urine Glucose NEGATIVE Urine Total Protein 1+ H Urine Opiates Screen Negative Urine Barbiturates Negative Urine Amphetamines Negative Screen Urine Negative Benzodiazepines Screen Urine Cocaine Screen Negative Urine Cannabinoids Negative HPI/ROS Admit Date/Time Admit Date/Time Jan 04, 2019 at 23:17 Hx of Present Illness This is a 68-year-old female with a history of hypertension, type 2 diabetes, hypothyroidism, CVA who was brought to the ER for facial numbness and slurred speech of several weeks duration. Per ER physician, patient was having right- sided facial numbness and slurred speech. On my questioning, patient's c omplaint was left upper extremity pain and weakness. Pain was elicited on range of motion exam of left upper extremity. There is also decreased sensation to light touch on the left forearm. In the ER, head CT, CT angiogram of the head and neck were done, showing old stroke, but no acute findings. Her initial blood pressure was 232/100. PMH/Family/Social Past Medical History Medical History: other (See HPI) Medications Current Medications IV Flush (NS 3 ml) 3 ml PER PROTOCOL IV ; Start 01/05/19 at 07:00 Ondansetron HCl (Zofran Inj) 4 mg Q6H PRN IV NAUSEA/VOMITING; Start 01/05/19 at 07:00 Aspirin (Aspirin) 81 mg DAILY PO ; Start 01/05/19 at 09:00 Acetaminophen (Tylenol Tab) 650 mg Q6H PRN PO .PAIN 1-3 OR TEMP; Start 01/05/19 at 07:00 Heparin Sodium (Porcine) (Heparin (5000 Units/1ml)) 5,000 unit Q12 SC ; Start 01/05/19 at 09:00 Atorvastatin Calcium (Lipitor) 80 mg QHS PO ; Start 01/05/19 at 21:00 Ferrous Sulfate (Ferrous Sulfate (Ec)) 650 mg DAILY PO ; Start 01/05/19 at 09:00 Hydralazine HCl (Apresoline) 100 mg Q8 PO ; Start 01/05/19 at 08:00 Levothyroxine Sodium (Synthroid) 100 mcg AC BREAKFAST PO ; Start 01/05/19 at 07:00 Lisinopril (Zestril) 40 mg BID PO ; Start 01/05/19 at 09:00 Loratadine (Claritin) 10 mg DAILY PO ; Start 01/05/19 at 09:00 Metformin HCl (Glucophage Xr) 500 mg WITH BREAKFAST PO ; Start 01/05/19 at 08:00 Metoprolol Tartrate (Lopressor) 100 mg BID PO ; Start 01/05/19 at 09:00 Warfarin Sodium (Coumadin) 5 mg DAILY@1700 PO ; Start 01/05/19 at 17:00 Pantoprazole (Protonix Tab) 40 mg DAILY@06 PO ; Start 01/05/19 at 08:00 Miscellaneous Information 1 ea NOTE XX ; Start 01/05/19 at 07:00 Glucose (Glutose) 15 gm Q15M PRN PO DECREASED GLUCOSE; Start 01/05/19 at 07:00 Glucose (Glutose) 22.5 gm Q15M PRN PO DECREASED GLUCOSE; Start 01/05/19 at 07:00 Dextrose (D50w Syringe) 25 ml Q15M PRN IV DECREASED GLUCOSE; Start 01/05/19 at 07:00 Dextrose (D50w Syringe) 50 ml Q15M PRN IV DECREASED GLUCOSE; Start 01/05/19 at 07:00 Glucagon (Glucagen) 1 mg Q15M PRN IM DECREASED GLUCOSE; Start 01/05/19 at 07:00 Glucose (Glutose) 15 gm Q15M PRN BUCCAL DECREASED GLUCOSE; Start 01/05/19 at 07:00 Coded Allergies: No Known Allergy (Unverified , 08/12/18) Past Surgical History Past Surgical Hx: cholecystectomy Family History Significant Family History: cancer Social History Alcohol Use: none Smoking Status: Never smoker Drug Use: none Exam/Review of Systems Vital Signs Vitals Vital Signs Date Temp Pulse Resp B/P (MAP) Pulse Ox O2 O2 Flow FiO2 Time Delivery Rate 01/05/19 98.0 70 20 158/80 96 07:36 (106) 01/05/19 Room Air 00:10 01/04/19 2 21:52 Intake and Output 01/04/19 01/04/19 01/05/19 1515:00 23:00 07:00 IntakeIntake Total 120 ml BalanceBalance 120 ml Exam Constitutional: other (Patient's appears somehow weak. Distress noted on range of motion examination of the left upper extremity) Head: normocephalic, atraumatic Eyes: PERRL Respiratory: clear to auscultation Cardiovascular: regular rate and rhythm Gastrointestinal: soft Musculoskeletal: other (Pain elicited on range of motion exam of the left upper extremity. She does however has full range of motion. No obvious deformity) Neurological: other (Decreased sensation in the left upper extremity) VELMA RAMOS MD Jan 05, 2019 08:39
[2019-01-05] MEDS ORDERED: HEPARIN 5,000 UNIT/1 ML VIAL SC SCH (09:00)
[2019-01-05] MEDS ORDERED: ASPIRIN 81 MG TAB PO SCH (09:00)
[2019-01-05] MEDS: LISINOPRIL 20 MG TAB PO SCH ×2 (09:23→20:31)
[2019-01-05] MEDS: METOPROLOL 100 MG TAB PO SCH ×2 (09:23→20:31)
[2019-01-05] MEDS: FERROUS SULFATE (EC) 325 MG TAB PO SCH (09:23)
[2019-01-05] MEDS: metFORMIN (XR) 500 MG TAB PO SCH (09:23)
[2019-01-05] MEDS: LEVOTHYROXINE 100 MCG TAB PO SCH (09:24)
[2019-01-05] MEDS: LORATADINE 10 MG TAB PO SCH (09:24)
[2019-01-05] MEDS: PANTOPRAZOLE (EC) 40 MG TAB PO SCH (10:28)
[2019-01-05] MEDS ORDERED: RIVA20TA5 PO (14:15)
--- NOTE | 2019-01-05 16:57 | PN ---
Date/Time of Note Date/Time of Note DATE: 01/05/19 TIME: 16:52 Assessment/Plan VTE Prophylaxis Risk score (from Nsg)>0 risk: 2 Pharmacological prophylaxis: rivaroxaban Lines/Catheters IV Catheter Type (from Nrsg): Saline Lock Urinary Cath still in place: No Assessment/Plan Hospital Course 1. Facial numbness and slurred speech, rule out CVA -Patient's facial numbness and speech has improved but now reports dizziness -Patient with a history of multiple CVAs. -Head CT and CT angiogram of the head and neck only shows old stroke, no acute findings -Follow-up on MRI, rule out cerebellar infarction -Resume patient's home Xarelto -Neurology consult obtained -PT and speech/swallow eval 2. History of CVA with residual left-sided weakness -CT head shows old left frontal lobe, left frontal - parietal - occipital lobe and the right parietal lobe -Continue home Xarelto and statin 3. Hypertensive emergency: BP better controlled. Adjust antihypertensive as needed 4. Type 2 diabetes: Insulin while in-house 5. Hypothyroidism: Continue Synthroid Prophylaxis: Xarelto DC planning: Follow-up on MRI Result Diagram: 01/05/1972501/05/19725 Results 24hrs Laboratory Tests Test 01/04/19 21:45 01/04/19 21:48 01/04/19 22:45 01/05/19 07:26 White Blood Count 5.6 # 4.1 #L Red Blood Count 3.73 L 3.43 L Hemoglobin 12.2 11.2 L Hematocrit 37.6 33.9 L Mean Corpuscular 100.8 98.8 Volume Mean Corpuscular 32.7 32.7 Hemoglobin Mean Corpuscular 32.4 33.0 Hemoglobin Concent Red Cell 13.7 13.9 Distribution Width Platelet Count 170 149 Mean Platelet Volume 10.7 H 11.4 H Immature 0.400 0.200 Granulocytes % Neutrophils % 68.3 69.6 Lymphocytes % 19.6 17.3 Monocytes % 7.2 8.5 Eosinophils % 3.4 3.2 Basophils % 1.1 1.2 Nucleated Red Blood 0.0 0.0 Cells % Immature 0.020 0.010 Granulocytes # Neutrophils # 3.8 2.9 Lymphocytes # 1.1 0.7 L Monocytes # 0.4 0.4 Eosinophils # 0.2 0.1 Basophils # 0.1 0.1 Nucleated Red Blood 0.0 0.0 Cells # Prothrombin Time 17.5 #H Prothrombin Time 1.4 Ratio INR International 1.42 Normalized Ratio Activated 34.9 Partial Thromboplast Time Sodium Level 139 141 Potassium Level 3.5 3.6 Chloride Level 103 105 Carbon Dioxide Level 26 28 Anion Gap 10 8 Blood Urea Nitrogen 11 9 Creatinine 0.56 0.52 Est Glomerular > 60 > 60 Filtrat Rate mL/min Glucose Level 126 88 Hemoglobin A1c 5.8 5.9 Calcium Level 9.7 9.2 Troponin I < 0.012 < 0.012 Triglycerides Level 45 44 Cholesterol Level 113 88 L LDL Cholesterol, 46 30 Calculated HDL Cholesterol 58 49 Cholesterol/HDL 1.9 1.7 Ratio Bedside Glucose 116 Urine Color STRAW Urine Clarity CLEAR Urine pH 7.0 Urine Specific 1.011 [place] Urine Ketones NEGATIVE Urine Nitrite NEGATIVE Urine Bilirubin NEGATIVE Urine Urobilinogen NEGATIVE Urine Leukocyte NEGATIVE Esterase Urine Microscopic 0 RBC Urine Microscopic 1 WBC Urine Hemoglobin NEGATIVE Urine Glucose NEGATIVE Urine Total Protein 1+ H Urine Opiates Screen Negative Urine Barbiturates Negative Urine Amphetamines Negative Screen Urine Negative Benzodiazepines Screen Urine Cocaine Screen Negative Urine Cannabinoids Negative Magnesium Level 1.7 Total Bilirubin 1.0 Direct Bilirubin 0.00 Indirect Bilirubin 1.0 Aspartate Amino 41 Transf (AST/SGOT) Alanine 55 Aminotransferase (AL T/SGPT) Alkaline Phosphatase 88 Creatine Kinase 46 Creatine Kinase 1.3 Index Creatinine Kinase MB 0.59 (Mass) Total Protein 5.9 L Albumin 3.4 Globulin 2.50 Albumin/Globulin 1.36 Ratio Thyroid Stimulating 1.740 Hormone (TSH) Test 01/05/19 12:42 Creatine Kinase 43 Creatine Kinase 1.0 Index Creatinine Kinase MB 0.44 (Mass) Troponin I < 0.012 Subjective 24 Hr Interval Summary Neurologic: dizziness Exam/Review of Systems Exam Vitals Vital Signs Date Temp Pulse Resp B/P (MAP) Pulse Ox O2 O2 Flow FiO2 Time Delivery Rate 01/05/19 98.0 87 20 157/86 98 16:13 (109) 01/05/19 Room Air 11:56 01/04/19 2 21:52 Intake and Output 01/04/19 01/04/19 01/05/19 1515:00 23:00 07:00 IntakeIntake Total 120 ml BalanceBalance 120 ml Constitutional: alert Respiratory: clear to auscultation Cardiovascular: regular rate and rhythm Gastrointestinal: soft; No distended Musculoskeletal: nl extremities to inspection Results Results 24hrs Laboratory Tests Test 01/04/19 21:45 01/04/19 21:48 01/04/19 22:45 01/05/19 07:26 White Blood Count 5.6 # 4.1 #L Red Blood Count 3.73 L 3.43 L Hemoglobin 12.2 11.2 L Hematocrit 37.6 33.9 L Mean Corpuscular 100.8 98.8 Volume Mean Corpuscular 32.7 32.7 Hemoglobin Mean Corpuscular 32.4 33.0 Hemoglobin Concent Red Cell 13.7 13.9 Distribution Width Platelet Count 170 149 Mean Platelet Volume 10.7 H 11.4 H Immature 0.400 0.200 Granulocytes % Neutrophils % 68.3 69.6 Lymphocytes % 19.6 17.3 Monocytes % 7.2 8.5 Eosinophils % 3.4 3.2 Basophils % 1.1 1.2 Nucleated Red Blood 0.0 0.0 Cells % Immature 0.020 0.010 Granulocytes # Neutrophils # 3.8 2.9 Lymphocytes # 1.1 0.7 L Monocytes # 0.4 0.4 Eosinophils # 0.2 0.1 Basophils # 0.1 0.1 Nucleated Red Blood 0.0 0.0 Cells # Prothrombin Time 17.5 #H Prothrombin Time 1.4 Ratio INR International 1.42 Normalized Ratio Activated 34.9 Partial Thromboplast Time Sodium Level 139 141 Potassium Level 3.5 3.6 Chloride Level 103 105 Carbon Dioxide Level 26 28 Anion Gap 10 8 Blood Urea Nitrogen 11 9 Creatinine 0.56 0.52 Est Glomerular > 60 > 60 Filtrat Rate mL/min Glucose Level 126 88 Hemoglobin A1c 5.8 5.9 Calcium Level 9.7 9.2 Troponin I < 0.012 < 0.012 Triglycerides Level 45 44 Cholesterol Level 113 88 L LDL Cholesterol, 46 30 Calculated HDL Cholesterol 58 49 Cholesterol/HDL 1.9 1.7 Ratio Bedside Glucose 116 Urine Color STRAW Urine Clarity CLEAR Urine pH 7.0 Urine Specific 1.011 [place] Urine Ketones NEGATIVE Urine Nitrite NEGATIVE Urine Bilirubin NEGATIVE Urine Urobilinogen NEGATIVE Urine Leukocyte NEGATIVE Esterase Urine Microscopic 0 RBC Urine Microscopic 1 WBC Urine Hemoglobin NEGATIVE Urine Glucose NEGATIVE Urine Total Protein 1+ H Urine Opiates Screen Negative Urine Barbiturates Negative Urine Amphetamines Negative Screen Urine Negative Benzodiazepines Screen Urine Cocaine Screen Negative Urine Cannabinoids Negative Magnesium Level 1.7 Total Bilirubin 1.0 Direct Bilirubin 0.00 Indirect Bilirubin 1.0 Aspartate Amino 41 Transf (AST/SGOT) Alanine 55 Aminotransferase (AL T/SGPT) Alkaline Phosphatase 88 Creatine Kinase 46 Creatine Kinase 1.3 Index Creatinine Kinase MB 0.59 (Mass) Total Protein 5.9 L Albumin 3.4 Globulin 2.50 Albumin/Globulin 1.36 Ratio Thyroid Stimulating 1.740 Hormone (TSH) Test 01/05/19 12:42 Creatine Kinase 43 Creatine Kinase 1.0 Index Creatinine Kinase MB 0.44 (Mass) Troponin I < 0.012 Medications Medication Current Medications IV Flush (NS 3 ml) 3 ml PER PROTOCOL IV ; Start 01/05/19 at 07:00 Ondansetron HCl (Zofran Inj) 4 mg Q6H PRN IV NAUSEA/VOMITING; Start 01/05/19 at 07:00 Acetaminophen (Tylenol Tab) 650 mg Q6H PRN PO .PAIN 1-3 OR TEMP; Start 01/05/19 at 07:00 Atorvastatin Calcium (Lipitor) 80 mg QHS PO ; Start 01/05/19 at 21:00 Ferrous Sulfate (Ferrous Sulfate (Ec)) 650 mg DAILY PO Last administered on 01/05/19 09:23; Admin Dose 650 MG; Start 01/05/19 at 09:00 Hydralazine HCl (Apresoline) 100 mg Q8 PO Last administered on 01/05/19at 14:12; Admin Dose 100 MG; Start 01/05/19 at 08:00 Levothyroxine Sodium (Synthroid) 100 mcg AC BREAKFAST PO Last administered on 01/05/19 09:24; Admin Dose 100 MCG; Start 01/05/19 at 07:00 Lisinopril (Zestril) 40 mg BID PO Last administered on 01/05/19 09:23; Admin Dose 40 MG; Start 01/05/19 at 09:00 Loratadine (Claritin) 10 mg DAILY PO Last administered on 01/05/19 09:24; Admin Dose 10 MG; Start 01/05/19 at 09:00 Metformin HCl (Glucophage Xr) 500 mg WITH BREAKFAST PO Last administered on 09:23; Admin Dose 500 MG; Start 01/05/19 at 08:00 Metoprolol Tartrate (Lopressor) 100 mg BID PO Last administered on 01/05/19at 09:23; Admin Dose 100 MG; Start 01/05/19 at 09:00 Pantoprazole (Protonix Tab) 40 mg DAILY@06 PO Last administered on 01/05/19at 10:28; Admin Dose 40 MG; Start 01/05/19 at 08:00 Miscellaneous Information 1 ea NOTE XX ; Start 01/05/19 at 07:00 Glucose (Glutose) 15 gm Q15M PRN PO DECREASED GLUCOSE; Start 01/05/19 at 07:00 Glucose (Glutose) 22.5 gm Q15M PRN PO DECREASED GLUCOSE; Start 01/05/19 at 07:00 Dextrose (D50w Syringe) 25 ml Q15M PRN IV DECREASED GLUCOSE; Start 01/05/19 at 07:00 Dextrose (D50w Syringe) 50 ml Q15M PRN IV DECREASED GLUCOSE; Start 01/05/19 at 07:00 Glucagon (Glucagen) 1 mg Q15M PRN IM DECREASED GLUCOSE; Start 01/05/19 at 07:00 Glucose (Glutose) 15 gm Q15M PRN BUCCAL DECREASED GLUCOSE; Start 01/05/19 at 07:00 Rivaroxaban (Xarelto) 20 mg WITH DINNER PO ; Start 01/05/19 at 18:00 YONI SALDAÑA Jan 05, 2019 16:57
[2019-01-05] MEDS ORDERED: WARFARIN 5 MG TAB PO SCH (17:00)
[2019-01-05] MEDS: RIVAROXABAN 20 MG TABLET PO SCH (17:44)
[2019-01-05] MEDS: ATORVASTATIN 80 MG TAB PO SCH (20:30)
[2019-01-06] VITALS (11 sets, daily range): BP systolic 130–190; BP diastolic 65–92; PULSE 54–77; RESP 19–20
[2019-01-06] MEDS ORDERED: hydrALAzine 20 MG INJ ONE (03:50)
[2019-01-06] MEDS ORDERED: hydrALAzine 20 MG INJ IV ONE ×2 (04:00)
[2019-01-06] MEDS: PANTOPRAZOLE (EC) 40 MG TAB PO SCH (05:43)
[2019-01-06] MEDS: LEVOTHYROXINE 100 MCG TAB PO SCH (05:45)
[2019-01-06] MEDS: metFORMIN (XR) 500 MG TAB PO SCH (08:22)
[2019-01-06] MEDS: LORATADINE 10 MG TAB PO SCH (08:22)
[2019-01-06] MEDS: FERROUS SULFATE (EC) 325 MG TAB PO SCH (08:23)
[2019-01-06] MEDS: METOPROLOL 100 MG TAB PO SCH (08:23)
[2019-01-06] MEDS: LISINOPRIL 20 MG TAB PO SCH (08:23)
[2019-01-06] MEDS ORDERED: LISINOPRIL 10 MG TAB PO SCH (09:00)
--- NOTE | 2019-01-06 16:00 | CONS ---
Assessment/Plan Assessment/Plan Hospital Course 68 F c/ reported Hx of afib, prior stroke, and other cerebrovascular risk factors, who presents for evaluation of leg weakness... Was additionally noted to have face weakness/numbness and dysarthria...for which neurology is consulted... However, she notes ongoing dysarthria etc. following remote stroke.. MRI brain is reassuringly negative for acute intracranial pathology.. P: Clarify outpatient anticoag regimen w/ outpatient pharmacy/pcp OK to continue Xarelto daily for now; Lipids are at goal Other management per primary Will follow clinically Consultation Date/Type/Reason Admit Date/Time Jan 04, 2019 at 23:17 Type of Consult Neurology Reason for Consultation face weakness, dysarthria Requesting Provider: YONI SALDAÑA Date/Time of Note DATE: 01/06/19 TIME: 16:00 Hx of Present Illness 68 yo F with hx of strokes, HTN, HLD, and other comorbidities who presented to the ED with c/o high blood pressure, face weakness and difficulty speaking. History was obtained from pt and chart review. The pt stated that she felt weak in her legs Sunday night. She stated that when her lower extremities become weak, she knows its usually accompanied with high BP. She states that she had her BP checked at home, which turned out to be very high. This is what prompted her to come into the ED. She denies any facial weakness or numbness. She does endorse dysarthria though she states that it is chronic, because of her stroke from 5 years ago. She additionally denies new weakness, paresthesias, vision changes, headache, lethargy, confusion. She confirms taking Xarelto with Coumadin, however she states that she takes a lot of medicines for stroke and high BP, and cannot remember the names of all of them. It is elsewhere noted: Hx of Present Illness This is a 68-year-old female with a history of hypertension, type 2 diabetes, hypothyroidism, CVA who was brought to the ER for facial numbness and slurred speech of several weeks duration. Per ER physician, patient was having right- sided facial numbness and slurred speech. On my questioning, patient's complaint was left upper extremity pain and weakness. Pain was elicited on range of motion exam of left upper extremity. There is also decreased sensation to light touch on the left forearm. In the ER, head CT, CT angiogram of the head and neck were done, showing old [facility] ro[facility], but no acute findings. Her initial blood pressure was 232/100. negative unless noted otherwise on HPI Exam/Review of Systems Exam Vitals Vital Signs Date Temp Pulse Resp B/P (MAP) Pulse Ox O2 O2 Flow FiO2 Time Delivery Rate 01/06/19 98.0 70 20 162/90 98 15:50 (114) 01/06/19 Room Air 11:38 01/04/19 2 21:52 Intake and Output 01/05/19 01/05/19 01/06/19 1515:00 23:00 07:00 IntakeIntake Total 1600 ml 480 ml BalanceBalance 1600 ml 480 ml Exam PE: Gen Appearance: No Apparent Distress HEENT: Normocephalic Cardiovascular: Regular rate Lungs: Clear bilaterally Abdomen: Soft Extremities: Dry NE: The patient was alert and oriented. Language was dysarthric; also had some difficulty with word finding. Fund of knowledge was adequate. Pupils were equal and reactive to light. There was no afferent pupillary defect. Visual bowers were normal. Funduscopic examination was limited. Extra-ocular movements were full. Ptosis was absent. There was no nystagmus. Facial sensation was normal. Face was symmetric with normal strength. Hearing was intact. Palate movements were normal. Neck strength was normal. There was normal tongue bulk and speed of movement. Tone was normal. Muscle bulk was normal. I did not see fasciculations. Arms and legs were strong. Vibration sensation was normal. Temperature and pinprick sensation was normal. Rapid alternating movements were normal. There was no dysmetria. There was no intention tremor. Gait was deferred due to bedrest. Arm and leg reflexes were 2+ and symmetric. Phillips's sign was absent. Plantar responses were flexor. Results Result Diagram: 01/06/19 0551 01/06/19 0551 Results 24hrs Laboratory Tests Test 01/06/19 05:51 White Blood Count 5.3 # Red Blood Count 3.64 L Hemoglobin 11.9 L Hematocrit 36.2 L Mean Corpuscular Volume 99.5 Mean Corpuscular Hemoglobin 32.7 Mean Corpuscular Hemoglobin Concent 32.9 Red Cell Distribution Width 13.4 Platelet Count 154 Mean Platelet Volume 10.9 H Immature Granulocytes % 0.200 Neutrophils % 74.9 Lymphocytes % 13.1 L Monocytes % 7.6 Eosinophils % 3.2 Basophils % 1.0 Nucleated Red Blood Cells % 0.0 Immature Granulocytes # 0.010 Neutrophils # 3.9 Lymphocytes # 0.7 L Monocytes # 0.4 Eosinophils # 0.2 Basophils # 0.1 Nucleated Red Blood Cells # 0.0 Prothrombin Time 25.2 #H Prothrombin Time Ratio 2.0 INR International Normalized Ratio 2.28 Sodium Level 141 Potassium Level 3.6 Chloride Level 103 Carbon Dioxide Level 30 Anion Gap 8 Blood Urea Nitrogen 9 Creatinine 0.50 Est Glomerular Filtrat Rate mL/min > 60 Glucose Level 97 Calcium Level 9.2 Phosphorus Level 4.0 Magnesium Level 1.7 Medications Medication Current Medications IV Flush (NS 3 ml) 3 ml PER PROTOCOL IV ; Start 01/05/19 at 07:00 Ondansetron HCl (Zofran Inj) 4 mg Q6H PRN IV NAUSEA/VOMITING; Start 01/05/19 at 07:00 Acetaminophen (Tylenol Tab) 650 mg Q6H PRN PO .PAIN 1-3 OR TEMP; Start 01/05/19 at 07:00 Atorvastatin Calcium (Lipitor) 80 mg QHS PO Last administered on 01/05/19 20:30; Admin Dose 80 MG; Start 01/05/19 at 21:00 Ferrous Sulfate (Ferrous Sulfate (Ec)) 650 mg DAILY PO Last administered on 01/06/19 08:23; Admin Dose 650 MG; Start 01/05/19 at 09:00 Hydralazine HCl (Apresoline) 100 mg Q8 PO Last administered on 01/06/19 12:11; Admin Dose 100 MG; Start 01/05/19 at 08:00 Levothyroxine Sodium (Synthroid) 100 mcg AC BREAKFAST PO Last administered on 01/06/19 05:45; Admin Dose 100 MCG; Start 01/05/19 at 07:00 Lisinopril (Zestril) 40 mg BID PO Last administered on 01/05/19 20:31; Admin Dose 40 MG; Start 01/05/19 at 09:00 Loratadine (Claritin) 10 mg DAILY PO Last administered on 01/06/19 08:22; Admin Dose 10 MG; Start 01/05/19 at 09:00 Metformin HCl (Glucophage Xr) 500 mg WITH BREAKFAST PO Last administered on 4/1/19at 08:22; Admin Dose 500 MG; Start 01/05/19 at 08:00 Metoprolol Tartrate (Lopressor) 100 mg BID PO Last administered on 01/06/19at 08:23; Admin Dose 100 MG; Start 01/05/19 at 09:00 Pantoprazole (Protonix Tab) 40 mg DAILY@06 PO Last administered on 01/06/19at 05:43; Admin Dose 40 MG; Start 01/05/19 at 08:00 Miscellaneous Information 1 ea NOTE XX ; Start 01/05/19 at 07:00 Glucose (Glutose) 15 gm Q15M PRN PO DECREASED GLUCOSE; Start 01/05/19 at 07:00 Glucose (Glutose) 22.5 gm Q15M PRN PO DECREASED GLUCOSE; Start 01/05/19 at 07:00 Dextrose (D50w Syringe) 25 ml Q15M PRN IV DECREASED GLUCOSE; Start 01/05/19 at 07:00 Dextrose (D50w Syringe) 50 ml Q15M PRN IV DECREASED GLUCOSE; Start 01/05/19 at 07:00 Glucagon (Glucagen) 1 mg Q15M PRN IM DECREASED GLUCOSE; Start 01/05/19 at 07:00 Glucose (Glutose) 15 gm Q15M PRN BUCCAL DECREASED GLUCOSE; Start 01/05/19 at 07:00 Rivaroxaban (Xarelto) 20 mg WITH DINNER PO Last administered on 01/05/19at 17:44; Admin Dose 20 MG; Start 01/05/19 at 18:00 Lisinopril (Zestril) 10 mg DAILY PO Last administered on 01/06/19at 08:23; Admin Dose 10 MG; Start 01/06/19 at 09:00 Past Medical History reviewed Medical History: other (See HPI) Home Meds Reported Medications Rivaroxaban* (Xarelto*) 20 Mg Tablet, 20 MG PO WITH DINNER, TAB 01/05/19 Ferrous Sulfate* (Ferrous Sulfate*) 325 Mg Tabec, 650 MG PO DAILY, TAB 08/12/18 Metformin Hcl* (Metformin Hcl* ER) 500 Mg Tab.sr.24h, 500 MG PO DAILY, #30 TAB 08/12/18 Omeprazole* (Omeprazole*) 20 Mg Capsule.dr, 20 MG PO AC BREAKFAST, #30 CAP 08/12/18 Lisinopril* (Lisinopril*) 40 Mg Tablet, 40 MG PO BID, #30 TAB 08/12/18 Loratadine* (Loratadine*) 10 Mg Tablet, 10 MG PO DAILY, #30 TAB 08/12/18 Hydralazine Hcl* (Hydralazine Hcl*) 100 Mg Tablet, 100 MG PO Q8, #90 TAB 08/12/18 Atorvastatin* (Atorvastatin*) 80 Mg Tablet, 80 MG PO QHS, #30 TAB 07/14/16 Levothyroxine Sodium* (Levothyroxine Sodium*) 100 Mcg Tablet, 100 MCG PO AC BREAKFAST, TAB 02/13/15 Warfarin Sodium* (Coumadin*) 5 Mg Tablet, 5 MG PO DAILY, TAB TAKE MON,MOI,FR-5MG AND T,TH,SAT,JUARES-7.5MG 02/13/15 Metoprolol (Lopressor) 100 Mg Tablet, 100 MG PO BID 12/04/13 Medications Current Medications IV Flush (NS 3 ml) 3 ml PER PROTOCOL IV ; Start 01/05/19 at 07:00 Ondansetron HCl (Zofran Inj) 4 mg Q6H PRN IV NAUSEA/VOMITING; Start 01/05/19 at 07:00 Acetaminophen (Tylenol Tab) 650 mg Q6H PRN PO .PAIN 1-3 OR TEMP; Start 01/05/19 at 07:00 Atorvastatin Calcium (Lipitor) 80 mg QHS PO Last administered on 01/05/19at 20:30; Admin Dose 80 MG; Start 01/05/19 at 21:00 Ferrous Sulfate (Ferrous Sulfate (Ec)) 650 mg DAILY PO Last administered on 01/06/19at 08:23; Admin Dose 650 MG; Start 01/05/19 at 09:00 Hydralazine HCl (Apresoline) 100 mg Q8 PO Last administered on 01/06/19at 12:11; Admin Dose 100 MG; Start 01/05/19 at 08:00 Levothyroxine Sodium (Synthroid) 100 mcg AC BREAKFAST PO Last administered on 01/06/19at 05:45; Admin Dose 100 MCG; Start 01/05/19 at 07:00 Lisinopril (Zestril) 40 mg BID PO Last administered on 01/05/19at 20:31; Admin Dose 40 MG; Start 01/05/19 at 09:00 Loratadine (Claritin) 10 mg DAILY PO Last administered on 01/06/19at 08:22; Admin Dose 10 MG; Start 01/05/19 at 09:00 Metformin HCl (Glucophage Xr) 500 mg WITH BREAKFAST PO Last administered on 01/06/19at 08:22; Admin Dose 500 MG; Start 01/05/19 at 08:00 Metoprolol Tartrate (Lopressor) 100 mg BID PO Last administered on 01/06/19at 08:23; Admin Dose 100 MG; Start 01/05/19 at 09:00 Pantoprazole (Protonix Tab) 40 mg DAILY@06 PO Last administered on 01/06/19at 05:43; Admin Dose 40 MG; Start 01/05/19 at 08:00 Miscellaneous Information 1 ea NOTE XX ; Start 01/05/19 at 07:00 Glucose (Glutose) 15 gm Q15M PRN PO DECREASED GLUCOSE; Start 01/05/19 at 07:00 Glucose (Glutose) 22.5 gm Q15M PRN PO DECREASED GLUCOSE; Start 01/05/19 at 07:00 Dextrose (D50w Syringe) 25 ml Q15M PRN IV DECREASED GLUCOSE; Start 01/05/19 at 07:00 Dextrose (D50w Syringe) 50 ml Q15M PRN IV DECREASED GLUCOSE; Start 01/05/19 at 07:00 Glucagon (Glucagen) 1 mg Q15M PRN IM DECREASED GLUCOSE; Start 01/05/19 at 07:00 Glucose (Glutose) 15 gm Q15M PRN BUCCAL DECREASED GLUCOSE; Start 01/05/19 at 07:00 Rivaroxaban (Xarelto) 20 mg WITH DINNER PO Last administered on 01/05/19at 17:44; Admin Dose 20 MG; Start 01/05/19 at 18:00 Lisinopril (Zestril) 10 mg DAILY PO Last administered on 01/06/19at 08:23; Admin Dose 10 MG; Start 01/06/19 at 09:00 Allergies: Coded Allergies: No Known Allergy (Unverified , 08/12/18) Past Surgical History reviewed Past Surgical Hx: cholecystectomy Social History reviewed Alcohol Use: none Smoking Status: Never smoker Drug Use: none JOSE GUADALUPE BURCIAGA NP Jan 06, 2019 16:00 GINA SHIELDS Jan 06, 2019 16:33
--- NOTE | 2019-01-06 16:09 | PN ---
Date/Time of Note Date/Time of Note DATE: 01/06/19 TIME: 16:06 Assessment/Plan VTE Prophylaxis Risk score (from Ns)>0 risk: 2 SCD applied (from Ns): Yes Pharmacological prophylaxis: heparin Lines/Catheters IV Catheter Type (from Nrs): Saline Lock Urinary Cath still in place: No Assessment/Plan Hospital Course 68 yo female with A Fib and CVA with vertigo and gait impairment CVA: - BP control - Xarelto for AC Hypertension: - Titrate BP meds. Add amlodipine 5. Switch Toprol to Coreg A Fib: - Continue Xarelto Vertigo/gait impairtment: - PT Discharge plan to [facility] Result Diagram: 01/06/19 0551 01/06/19 0551 Results 24hrs Laboratory Tests Test 01/06/19 05:51 White Blood Count 5.3 # Red Blood Count 3.64 L Hemoglobin 11.9 L Hematocrit 36.2 L Mean Corpuscular Volume 99.5 Mean Corpuscular Hemoglobin 32.7 Mean Corpuscular Hemoglobin Concent 32.9 Red Cell Distribution Width 13.4 Platelet Count 154 Mean Platelet Volume 10.9 H Immature Granulocytes % 0.200 Neutrophils % 74.9 Lymphocytes % 13.1 L Monocytes % 7.6 Eosinophils % 3.2 Basophils % 1.0 Nucleated Red Blood Cells % 0.0 Immature Granulocytes # 0.010 Neutrophils # 3.9 Lymphocytes # 0.7 L Monocytes # 0.4 Eosinophils # 0.2 Basophils # 0.1 Nucleated Red Blood Cells # 0.0 Prothrombin Time 25.2 #H Prothrombin Time Ratio 2.0 INR International Normalized Ratio 2.28 Sodium Level 141 Potassium Level 3.6 Chloride Level 103 Carbon Dioxide Level 30 Anion Gap 8 Blood Urea Nitrogen 9 Creatinine 0.50 Est Glomerular Filtrat Rate mL/min > 60 Glucose Level 97 Calcium Level 9.2 Phosphorus Level 4.0 Magnesium Level 1.7 Subjective 24 Hr Interval Summary Free Text/Dictation Continues to complain of vertigo. Very sad about it Exam/Review of Systems Exam Vitals Vital Signs Date Temp Pulse Resp B/P (MAP) Pulse Ox O2 O2 Flow FiO2 Time Delivery Rate 01/06/19 98.0 70 20 162/90 98 15:50 (114) 01/06/19 Room Air 11:38 01/04/19 2 21:52 Intake and Output 01/05/19 01/05/1919 1515:00 23:00 07:00 IntakeIntake Total 1600 ml 480 ml BalanceBalance 1600 ml 480 ml Exam Dysarthria RRR CTAB Soft nt nd Ext warm no edema Results Results 24hrs Laboratory Tests Test 01/06/19 05:51 White Blood Count 5.3 # Red Blood Count 3.64 L Hemoglobin 11.9 L Hematocrit 36.2 L Mean Corpuscular Volume 99.5 Mean Corpuscular Hemoglobin 32.7 Mean Corpuscular Hemoglobin Concent 32.9 Red Cell Distribution Width 13.4 Platelet Count 154 Mean Platelet Volume 10.9 H Immature Granulocytes % 0.200 Neutrophils % 74.9 Lymphocytes % 13.1 L Monocytes % 7.6 Eosinophils % 3.2 Basophils % 1.0 Nucleated Red Blood Cells % 0.0 Immature Granulocytes # 0.010 Neutrophils # 3.9 Lymphocytes # 0.7 L Monocytes # 0.4 Eosinophils # 0.2 Basophils # 0.1 Nucleated Red Blood Cells # 0.0 Prothrombin Time 25.2 #H Prothrombin Time Ratio 2.0 INR International Normalized Ratio 2.28 Sodium Level 141 Potassium Level 3.6 Chloride Level 103 Carbon Dioxide Level 30 Anion Gap 8 Blood Urea Nitrogen 9 Creatinine 0.50 Est Glomerular Filtrat Rate mL/min > 60 Glucose Level 97 Calcium Level 9.2 Phosphorus Level 4.0 Magnesium Level 1.7 Medications Medication Current Medications IV Flush (NS 3 ml) 3 ml PER PROTOCOL IV ; Start 01/05/19 at 07:00 Ondansetron HCl (Zofran Inj) 4 mg Q6H PRN IV NAUSEA/VOMITING; Start 01/05/19 at 07:00 Acetaminophen (Tylenol Tab) 650 mg Q6H PRN PO .PAIN 1-3 OR TEMP; Start 01/05/19 at 07:00 Atorvastatin Calcium (Lipitor) 80 mg QHS PO Last administered on 01/05/19at 20:30; Admin Dose 80 MG; Start 01/05/19 at 21:00 Ferrous Sulfate (Ferrous Sulfate (Ec)) 650 mg DAILY PO Last administered on 01/06/19at 08:23; Admin Dose 650 MG; Start 01/05/19 at 09:00 Hydralazine HCl (Apresoline) 100 mg Q8 PO Last administered on 01/06/19at 12:11; Admin Dose 100 MG; Start 01/05/19 at 08:00 Levothyroxine Sodium (Synthroid) 100 mcg AC BREAKFAST PO Last administered on 01/06/19at 05:45; Admin Dose 100 MCG; Start 01/05/19 at 07:00 Lisinopril (Zestril) 40 mg BID PO Last administered on 01/05/19at 20:31; Admin Dose 40 MG; Start 01/05/19 at 09:00 Loratadine (Claritin) 10 mg DAILY PO Last administered on 01/06/19 08:22; Admin Dose 10 MG; Start 01/05/19 at 09:00 Metformin HCl (Glucophage Xr) 500 mg WITH BREAKFAST PO Last administered on 01/06/19 08:22; Admin Dose 500 MG; Start 01/05/19 at 08:00 Metoprolol Tartrate (Lopressor) 100 mg BID PO Last administered on 01/06/19 08:23; Admin Dose 100 MG; Start 01/05/19 at 09:00 Pantoprazole (Protonix Tab) 40 mg DAILY@06 PO Last administered on 01/06/19at 05:43; Admin Dose 40 MG; Start 01/05/19 at 08:00 Miscellaneous Information 1 ea NOTE XX ; Start 01/05/19 at 07:00 Glucose (Glutose) 15 gm Q15M PRN PO DECREASED GLUCOSE; Start 01/05/19 at 07:00 Glucose (Glutose) 22.5 gm Q15M PRN PO DECREASED GLUCOSE; Start 01/05/19 at 07:00 Dextrose (D50w Syringe) 25 ml Q15M PRN IV DECREASED GLUCOSE; Start 01/05/19 at 07:00 Dextrose (D50w Syringe) 50 ml Q15M PRN IV DECREASED GLUCOSE; Start 01/05/19 at 07:00 Glucagon (Glucagen) 1 mg Q15M PRN IM DECREASED GLUCOSE; Start 01/05/19 at 07:00 Glucose (Glutose) 15 gm Q15M PRN BUCCAL DECREASED GLUCOSE; Start 01/05/19 at 07:00 Rivaroxaban (Xarelto) 20 mg WITH DINNER PO Last administered on 01/05/19at 17:44; Admin Dose 20 MG; Start 01/05/19 at 18:00 Lisinopril (Zestril) 10 mg DAILY PO Last administered on 4/1/19at 08:23; Admin Dose 10 MG; Start 01/06/19 at 09:00 RHYS LAW MD Jan 06, 2019 16:09
[2019-01-06] MEDS: RIVAROXABAN 20 MG TABLET PO SCH (17:12)
[2019-01-06] MEDS: ATORVASTATIN 80 MG TAB PO SCH (21:56)
[2019-01-06] MEDS: AMLODIPINE 5 MG TAB PO SCH (21:56)
[2019-01-06] MEDS ORDERED: LORAZEPAM 0.5 MG TAB PO PRN (22:00)
[2019-01-07] VITALS (11 sets, daily range): BP systolic 113–168; BP diastolic 67–85; PULSE 57–92; RESP 16–18
[2019-01-07] MEDS: PANTOPRAZOLE (EC) 40 MG TAB PO SCH (06:44)
[2019-01-07] MEDS: LEVOTHYROXINE 100 MCG TAB PO SCH (06:44)
[2019-01-07] MEDS: FERROUS SULFATE (EC) 325 MG TAB PO SCH (08:41)
[2019-01-07] MEDS: LISINOPRIL 20 MG TAB PO SCH (08:42)
[2019-01-07] MEDS: LORATADINE 10 MG TAB PO SCH (08:45)
[2019-01-07] MEDS: metFORMIN (XR) 500 MG TAB PO SCH (08:45)
[2019-01-07] MEDS: RIVAROXABAN 20 MG TABLET PO SCH (08:45)
[2019-01-07] MEDS: AMLODIPINE 5 MG TAB PO SCH (08:46)
[2019-01-07] MEDS ORDERED: AMLODIPINE 5 MG TAB PO SCH (09:00)
--- NOTE | 2019-01-07 15:53 | CONS ---
Assessment/Plan Assessment/Plan Hospital Course 68 F c/ reported Hx of afib, prior stroke, and other cerebrovascular risk factors, who presents for evaluation of leg weakness... Was additionally noted to have face weakness/numbness and dysarthria...for which neurology is consulted... However, she notes ongoing dysarthria etc. following r emote stroke.. MRI brain is reassuringly negative for acute intracranial pathology.. P: Clarify outpatient anticoag regimen w/ outpatient pharmacy/pcp OK to continue Xarelto daily for now; Lipids are at goal Other medical management per primary Will follow Consultation Date/Type/Reason Admit Date/Time Jan 04, 2019 at 23:17 Type of Consult Neurology Requesting Provider: YONI SALDAÑA Date/Time of Note DATE: 01/07/19 TIME: 15:52 24 HR Interval Summary Free Text/Dictation Continues acute care. Pt is without complaints today. Exam Vital Signs Vitals Vital Signs Date Temp Pulse Resp B/P (MAP) Pulse Ox O2 O2 Flow FiO2 Time Delivery Rate 01/07/19 98.0 67 18 113/75 98 15:49 (88) 01/07/19 Room Air 11:15 01/04/19 2 21:52 Intake and Output 01/06/19 01/06/19 01/07/19 1515:00 23:00 07:00 IntakeIntake Total 800 ml 250 ml BalanceBalance 800 ml 250 ml Exam PE: Gen Appearance: No Apparent Distress HEENT: Normocephalic Cardiovascular: Regular rate Lungs: Clear bilaterally Abdomen: Soft Extremities: Dry NE: The patient was alert and oriented. Language was dysarthric; also had some difficulty with word finding. Fund of knowledge was adequate. Pupils were equal and reactive to light. There was no afferent pupillary defect. Visual bowers were normal. Funduscopic examination was limited. Extra-ocular movements were full. Ptosis was absent. There was no nystagmus. Facial sensation was normal. Face was symmetric with normal strength. Hearing was intact. Palate movements were normal. Neck strength was normal. There was normal tongue bulk and speed of movement. Tone was normal. Muscle bulk was normal. I did not see fasciculations. Arms and legs were strong. Vibration sensation was normal. Temperature and pinprick sensation was normal. Rapid alternating movements were normal. There was no dysmetria. There was no intention tremor. Gait was deferred due to bedrest. Arm and leg reflexes were 2+ and symmetric. Phillips's sign was absent. Plantar responses were flexor. JOSE GUADALUPE BURCIAGA NP Jan 07, 2019 15:53
--- NOTE | 2019-01-07 16:39 | PN ---
Date/Time of Note Date/Time of Note DATE: 01/07/19 TIME: 16:38 Assessment/Plan VTE Prophylaxis Risk score (from Nsg)>0 risk: 2 SCD applied (from Nsg): Yes Pharmacological prophylaxis: heparin Lines/Catheters IV Catheter Type (from Nrsg): Saline Lock Urinary Cath still in place: No Assessment/Plan Hospital Course 68 yo female with A Fib and CVA with vertigo and gait impairment CVA: - BP controlled - Xarelto for AC Hypertension: - Titrate BP meds. Added amlodipine 5. Switched Toprol to Coreg A Fib: - Continue Xarelto Vertigo/gait impairtment: - PT Discharge plan to SNF Result Diagram: 01/06/19 0551 01/06/19 0551 Results 24hrs Laboratory Tests Test 01/07/19 08:44 Bedside Glucose 189 Subjective 24 Hr Interval Summary Free Text/Dictation Symptoms improving she says Working with PT Exam/Review of Systems Exam Vitals Vital Signs Date Temp Pulse Resp B/P (MAP) Pulse Ox O2 O2 Flow FiO2 Time Delivery Rate 01/07/19 98.0 67 18 113/75 98 15:49 (88) 01/07/19 Room Air 11:15 01/04/19 2 21:52 Intake and Output 01/06/19 01/06/19 01/07/19 1515:00 23:00 07:00 IntakeIntake Total 800 ml 250 ml BalanceBalance 800 ml 250 ml Constitutional: alert, oriented, well developed Psych: no complaints, nl mood/affect Head: normocephalic, atraumatic Eyes: nl conjunctiva, EOMI, nl lids, nl sclera, PERRL ENMT: nl external ears & nose, nl lips & teeth, nl nasal mucosa & septum Neck: supple, non-tender Respiratory: clear to auscultation, normal air movement Cardiovascular: regular rate and rhythm, nl pulses Gastrointestinal: soft, nl liver, spleen, non-tender Musculoskeletal: nl extremities to inspection, nl gait and stance Extremities: normal pulses Neurological: [employer] II-XII intact, nl mental status, nl speech, nl strength Skin: nl turgor; No rash or lesions Lymph: nl lymph nodes Results Results 24hrs Laboratory Tests Test 01/07/19 08:44 Bedside Glucose 189 Medications Medication Current Medications IV Flush (NS 3 ml) 3 ml PER PROTOCOL IV ; Start 01/05/19 at 07:00 Ondansetron HCl (Zofran Inj) 4 mg Q6H PRN IV NAUSEA/VOMITING; Start 01/05/19 at 07:00 Acetaminophen (Tylenol Tab) 650 mg Q6H PRN PO .PAIN 1-3 OR TEMP; Start 01/05/19 at 07:00 Atorvastatin Calcium (Lipitor) 80 mg QHS PO Last administered on 01/06/19at 21:56; Admin Dose 80 MG; Start 01/05/19 at 21:00 Ferrous Sulfate (Ferrous Sulfate (Ec)) 650 mg DAILY PO Last administered on 01/07 08:41; Admin Dose 650 MG; Start 01/05/19 at 09:00 Hydralazine HCl (Apresoline) 100 mg Q8 PO Last administered on 01/07/19at 13:41; Admin Dose 100 MG; Start 01/05/19 at 08:00 Levothyroxine Sodium (Synthroid) 100 mcg AC BREAKFAST PO Last administered on 01/07/19at 06:44; Admin Dose 100 MCG; Start 01/05/19 at 07:00 Loratadine (Claritin) 10 mg DAILY PO Last administered on 01/07/19 08:45; Admin Dose 10 MG; Start 01/05/19 at 09:00 Metformin HCl (Glucophage Xr) 500 mg WITH BREAKFAST PO Last administered on 01/07/19 08:45; Admin Dose 500 MG; Start 01/05/19 at 08:00 Pantoprazole (Protonix Tab) 40 mg DAILY@06 PO Last administered on 01/07/19at 06:44; Admin Dose 40 MG; Start 01/05/19 at 08:00 Miscellaneous Information 1 ea NOTE XX ; Start 01/05/19 at 07:00 Glucose (Glutose) 15 gm Q15M PRN PO DECREASED GLUCOSE; Start 01/05/19 at 07:00 Glucose (Glutose) 22.5 gm Q15M PRN PO DECREASED GLUCOSE; Start 01/05/19 at 07:00 Dextrose (D50w Syringe) 25 ml Q15M PRN IV DECREASED GLUCOSE; Start 01/05/19 at 07:00 Dextrose (D50w Syringe) 50 ml Q15M PRN IV DECREASED GLUCOSE; Start 01/05/19 at 07:00 Glucagon (Glucagen) 1 mg Q15M PRN IM DECREASED GLUCOSE; Start 01/05/19 at 07:00 Glucose (Glutose) 15 gm Q15M PRN BUCCAL DECREASED GLUCOSE; Start 01/05/19 at 07:00 Lisinopril (Zestril) 40 mg DAILY PO Last administered on 01/07/19at 08:42; Admin Dose 40 MG; Start 01/07/19 at 09:00 Carvedilol (Coreg) 12.5 mg BID PO Last administered on 01/07/19at 08:46; Admin Dose 12.5 MG; Start 01/06/19 at 21:00 Amlodipine Besylate (Norvasc) 5 mg DAILY PO Last administered on 01/07/19at 08:46; Admin Dose 5 MG; Start 01/06/19 at 20:30 Rivaroxaban (Xarelto) 20 mg WITH BREAKFAST PO Last administered on 01/07/19at 08:45; Admin Dose 20 MG; Start 01/07/19 at 08:00 Lorazepam (Ativan) 0.25 mg HS PRN PO ANXIETY; Start 01/06/19 at 22:00 RHYS LAW MD Jan 07, 2019 16:39
[2019-01-07] MEDS: ATORVASTATIN 80 MG TAB PO SCH (20:08)
--- NOTE | 2019-01-07 22:04 | RADRPT ---
Echocardiogram Report Patient Name: CHUN SHERIDANPatient ID: [id number] : 1950 (68y 4m)Study Date: 01/06/2019 8:17:03 AM Gender: FAccession #: [id number] Tech: PR Location: Ref.Physician: VELMA RAMOS Height(Cm): BSA: Weight(Kg): Quality: AdequateAccount #: Procedures: Echocardiographic Report: Transthoracic echocardiogram with complete 2D, M-Mode, and doppler examination. Indications: Transient Ischemic Attack. Measurements: 2D/M Mode Doppler Measurement Value Normal Range Measurement Value Normal Range LVIDd 2D 4.3 [ 3.8 - 5.2 ] cm AV Peak Roland 1.6 [ 100.0 - 170.0 ] cm/sec LVIDs 2D 2.8 [ 2.2 - 3.5 ] cm AV Peak PG 10.0 [ 2.0 - 9.0 ] mmHg LVPWd 2D 1.5 [ 0.6 - 0.9 ] cm LVOT Peak Roland 1.1 [ 70.0 - 110.0 ] cm/sec IVSd 2D 1.4 [ 0.6 - 0.9 ] cm LVOT Peak PG 5.0 [ 2.0 - 6.0 ] mmHg AoR Diam 2D 2.7 [ 2.3 - 3.1 ] cm MV E Peak Roland 1.1 [ 60.0 - 130.0 ] cm/sec EDV 2D 81.3 [ 46.0 - 106.0 ] ml MV Decel Time 158 [ 104 - 258 ] msec ESV 2D 28.3 [ 14.0 - 42.0 ] ml Lat E` Roland 0.1 [ 10.0 - 15.0 ] cm/sec EF 2D 65.2 [ 54.0 - 74.0 ] percent Lateral E/E` 8.3 [ 1.0 - 2.0 ] ratio LA Dimen 2D 4.0 [ 2.7 - 3.8 ] cm TR Peak Roland 2.5 [ 100.0 - 280.0 ] cm/sec TR Peak PG 25.0 mmHg RVSP 28.0 [ 10.0 - 36.0 ] mmHg RA Pressure 3.0 mmHg Findings: Left Ventricle: Normal left ventricular systolic function. Normal left ventricular cavity size. Moderate concentric left ventricular hypertrophy. Ejection fraction is visually estimated at 65 %. Tissue Doppler/Mitral Doppler indices are consistent with pseudonormalization with mildly elevated left atrial pressure (Stage II diastolic dysfunction). Right Ventricle: Normal right ventricular size. Normal right ventricular systolic function. Left Atrium: There is mild enlargement of left atrium. Right Atrium: There is mild enlargement of right atrium. Mitral Valve: Mitral valve leaflets appear mildly thickened. Mild mitral annular calcification. Mild mitral valve regurgitation. Aortic Valve: No significant aortic stenosis or insufficiency. Aortic cusps appear mildly calcified. Tricuspid Valve: Normal appearance of the tricuspid valve. Estimated peak PA systolic pressure 28 mmHg. There is mild tricuspid regurgitation. Pulmonic Valve: Pulmonic valve not well visualized. Pericardium: Normal pericardium with no significant pericardial effusion. Aorta: Normal aortic root. IVC: Normal size and normal respiratory collapse consistent with normal right atrial pressure. Conclusions: Normal left ventricular systolic function. Normal left ventricular cavity size. Moderate concentric left ventricular hypertrophy. Ejection fraction is visually estimated at 65 %. Tissue Doppler/Mitral Doppler indices are consistent with pseudonormalization with mildly elevated left atrial pressure (Stage II diastolic dysfunction). Normal right ventricular size. Normal right ventricular systolic function. There is mild enlargement of left atrium. There is mild enlargement of right atrium. Mild mitral valve regurgitation. No significant aortic stenosis or insufficiency. There is mild tricuspid regurgitation. Normal pericardium with no significant pericardial effusion. Electronically Signed By: Ernie Hahn 2019-01-07 22:03:42 PDT
[2019-01-08 02:32] VITALS: BP 122/63; PULSE 68; RESP 16
[2019-01-08] MEDS: PANTOPRAZOLE (EC) 40 MG TAB PO SCH (05:59)
--- NOTE | 2019-01-08 07:13 | CONS ---
Assessment/Plan Assessment/Plan Hospital Course 68 F c/ reported Hx of afib, prior stroke, and other cerebrovascular risk factors, who presents for evaluation of leg weakness... Was additionally noted to have face weakness/numbness and dysarthria...for which neurology is consulted... However, she notes ongoing dysarthria etc. following r emote stroke.. MRI brain is reassuringly negative for acute intracranial pathology.. P: OK to continue Xarelto daily for now; Lipids are at goal Other medical management per primary Will follow Consultation Date/Type/Reason Admit Date/Time Jan 04, 2019 at 23:17 Type of Consult Neurology Reason for Consultation face weakness, dysarthria Requesting Provider: YONI SALDAÑA Date/Time of Note DATE: 01/08/19 TIME: 07:13 24 HR Interval Summary Free Text/Dictation Continues acute care States that the rooms are too small.. Exam Vital Signs Vitals Vital Signs Date Temp Pulse Resp B/P (MAP) Pulse Ox O2 O2 Flow FiO2 Time Delivery Rate 01/08/19 98.2 68 16 122/63 96 02:32 (82) 01/07/19 Room Air 18:52 01/04/19 2 21:52 Intake and Output 01/07/19 01/07/19 01/08/19 1414:59 22:59 06:59 IntakeIntake Total 250 ml 900 ml BalanceBalance 250 ml 900 ml Exam PE: Gen Appearance: No Apparent Distress HEENT: Normocephalic Cardiovascular: Regular rate Abdomen: Soft Extremities: Dry NE: The patient was alert and oriented. Language was normal. Fund of knowledge was adequate. Pupils were equal and reactive to light. There was no afferent pupillary defect. Visual bowers were normal. Funduscopic examination was limited. Extra-ocular movements were full. Ptosis was absent. There was no nystagmus. Facial sensation was normal. Face was symmetric with normal strength. Hearing was intact. Palate movements were normal. Neck strength was normal. There was normal tongue bulk and speed of movement. Tone was normal. Muscle bulk was normal. I did not see fasciculations. She moved her limbs spontaneously.. Vibration sensation was normal. Temperature and pinprick sensation was normal. Rapid alternating movements were normal. There was no dysmetria. There was no i ntention tremor. Gait was deferred due to bedrest. Arm and leg reflexes were symmetric. Phillips's sign was absent. Plantar resp onses were flexor. GINA SHIELDS Jan 08, 2019 07:13
[2019-01-08 08:00] VITALS: BP 140/65; PULSE 71; RESP 17
[2019-01-08] MEDS: LISINOPRIL 20 MG TAB PO SCH (08:25)
[2019-01-08] MEDS: LEVOTHYROXINE 100 MCG TAB PO SCH (08:25)
[2019-01-08] MEDS: RIVAROXABAN 20 MG TABLET PO SCH (08:26)
[2019-01-08] MEDS: LORATADINE 10 MG TAB PO SCH (08:26)
[2019-01-08] MEDS: AMLODIPINE 5 MG TAB PO SCH (08:26)
[2019-01-08] MEDS: metFORMIN (XR) 500 MG TAB PO SCH (08:26)
[2019-01-08] MEDS: FERROUS SULFATE (EC) 325 MG TAB PO SCH (08:27)
[2019-01-08] MEDS ORDERED: AMLO-145 PO (13:35)
[2019-01-08] MEDS ORDERED: CARV12.579 PO (13:35)
--- NOTE | 2019-01-08 13:36 | PDOCDIS ---
Discharge Instructions DIAGNOSIS Discharge Diagnosis Hypertension CVA CONDITION [id number] Patient Condition: [id number] Stable FOLLOW UP/APPOINTMENTS Follow-up Plan Take your medications as prescribed See your primary care doctor as soon as possible RHYS LAW MD Jan 08, 2019 13:36
--- NOTE | 2019-01-08 17:06 | DS ---
Date/Time of Note Date/Time of Note DATE: 01/08/19 TIME: 17:05 Discharge Summary Admission/Discharge Info Admit Date/Time Jan 04, 2019 at 23:17 Discharge Date/Time Jan 08, 2019 at 14:55 Discharge Diagnosis Hypertension CVA Patient Condition: Stable Hospital Course 68 yo female with A Fib and CVA with vertigo and gait impairment remote stroke was confirmed on head imaging. She was continue on anticoagulation for atrial fibrillation. She remained hypertensive so I added Coreg and amloidipne with good effect. She worked with PT/OT. She was discharged to home for further care as outpatient Home Meds Active Scripts Amlodipine Besylate* (Amlodipine Besylate*) 5 Mg Tablet, 5 MG PO DAILY for 60 Days, #60 TAB 2 Refills Prov:RHYS LAW MD 01/08/19 Carvedilol* (Carvedilol*) 12.5 Mg Tablet, 6.25 MG PO BID for 60 Days, #120 TAB 2 Refills Prov:RHYS LAW MD 01/08/19 Reported Medications Rivaroxaban* (Xarelto*) 20 Mg Tablet, 20 MG PO WITH DINNER, TAB 01/05/19 Metformin Hcl* (Metformin Hcl* ER) 500 Mg Tab.sr.24h, 500 MG PO DAILY, #30 TAB 08/12/18 Omeprazole* (Omeprazole*) 20 Mg Capsule.dr, 20 MG PO AC BREAKFAST, #30 CAP 08/12/18 Lisinopril* (Lisinopril*) 40 Mg Tablet, 40 MG PO BID, #30 TAB 08/12/18 Hydralazine Hcl* (Hydralazine Hcl*) 100 Mg Tablet, 100 MG PO Q8, #90 TAB 08/12/18 Atorvastatin* (Atorvastatin*) 80 Mg Tablet, 80 MG PO QHS, #30 TAB 07/14/16 Levothyroxine Sodium* (Levothyroxine Sodium*) 100 Mcg Tablet, 100 MCG PO AC BREAKFAST, TAB 02/13/15 Discontinued Reported Medications Ferrous Sulfate* (Ferrous Sulfate*) 325 Mg Tabec, 650 MG PO DAILY, TAB 08/12/18 Loratadine* (Loratadine*) 10 Mg Tablet, 10 MG PO DAILY, #30 TAB 08/12/18 Warfarin Sodium* (Coumadin*) 5 Mg Tablet, 5 MG PO DAILY, TAB TAKE MON,MOI,FR-5MG AND T,TH,SAT,JUARES-7.5MG 02/13/15 Metoprolol (Lopressor) 100 Mg Tablet, 100 MG PO BID 12/04/13 Follow-up Plan Take your medications as prescribed See your primary care doctor as soon as possible Primary Care Provider Not On Staff Doctor Pending Labs Laboratory Tests Test 01/08/19 08:19 Bedside Glucose 134 mg/dL (70-220) RHYS LAW MD Jan 08, 2019 17:05
== END 2019-01-08 14:55 | disposition home health service (06) | DRG 65 ==
LOC: E/R 21:26 → 6WM 23:17 → PP2 01-07 18:29
PROVIDERS: ADMIT Internal Medicine; ATTEND Internal Medicine
DX: I63.9 Cerebral infarction, unspecified (principal); I16.1 Hypertensive emergency; I69.954 Hemiplegia and hemiparesis following unspecified cerebrovascular disease affecting left non-dominant side; I69.920 Aphasia following unspecified cerebrovascular disease; E03.9 Hypothyroidism, unspecified; E11.9 Type 2 diabetes mellitus without complications; I10 Essential (primary) hypertension; E78.5 Hyperlipidemia, unspecified; R29.810 Facial weakness; R47.1 Dysarthria and anarthria; Z79.4 Long term (current) use of insulin; Z79.01 Long term (current) use of anticoagulants
CPT/HCPCS: 36415; 70450; 70496; 70498; 70551; 71045; 80048; 80053; 80061; 80307; 81001; 82550; 82553; 82962; 83036; 83735; 84100; 84443; 84484; 85025; 85610; 85730; 92610; 93005; 93306; 96374; 97110; 97116; 97162; J0360; J1644; Q9967